=== PATIENT | female | born 1955 | race Caucasian/White ===

== ENCOUNTER 2017-11-23 04:40 | Observation (INO) | payer MEDICARE, OTHER ==
[~2017-11-23] VITALS: Ht 157.5 cm; Wt 76.8 kg
[2017-11-23] VITALS (10 sets, daily range): BP systolic 104–143; BP diastolic 58–76; PULSE 62–89; RESP 16–20; TEMP 97.3–97.9; O2SAT 93–99
[~2017-11-23 04:40] MED LIST: COZA50TA PO; PRAV40TA PO
--- NOTE | 2017-11-23 05:07 | RADRPT ---
EXAM DATE/TIME: 11/23/2017 04:55 [facility] COMPARISON: CT BRAIN W/O CONTRAST, October 21, 2016, 8:25. INDICATIONS : Left sided body tingling. RADIATION DOSE: 58.18 CTDIvol (mGy) MEDICAL HISTORY : Hypertension. Diabetes mellitus type 2. Cerebrovascular disease. SURGICAL HISTORY : None. ENCOUNTER: Initial ACUITY: 1 day PAIN SCALE: 0/10 LOCATION: cranial TECHNIQUE: Multiple contiguous axial images were obtained of the head. Using automated exposure control and adj ustment of the mA and/or kV according to patient size, radiation dose was kept as low as reasonably a chievable to obtain optimal diagnostic quality images. DICOM format image data is available electro nically for review and comparison. FINDINGS: Noncontrast axial head CT demonstrates the ventricles to be normal in size and configuration with a n ormal sulcal pattern. No acute intracranial hemorrhage, acute cortical infarction, mass or midline sh ift is seen. Old right frontotemporal lobe infarct is present. Posterior fossa structures are unremar kable. Bone windows are unremarkable. CONCLUSION: 1. No evidence of acute intracranial pathology. No masses are identified. 2. Old right frontotemporal infarct Forrest Solis MD on November 23, 2017 at 5:05 Board Certified Radiologist. This report was verified electronically.
[2017-11-23 05:15] LABS: AUTOMATED NEUTROPHIL # 2.8 TH/MM3 (1.8-7.7); BASOPHIL % 0.4 % (0.0-2.0); EOSINOPHIL # 0.4 TH/MM3 (0-0.4); EOSINOPHIL % 5.4 % (0.0-4.0); HEMATOCRIT 39.9 % (35.0-46.0); HEMOGLOBIN 13.3 GM/DL (11.6-15.3); LYMPH % 44.3 % (9.0-44.0); LYMPHOCYTE # 3.1 TH/MM3 (1.0-4.8); MEAN CELL VOLUME 86.3 FL (80.0-100.0); MEAN CORPUSCULAR HEMOGLOBIN 28.7 PG (27.0-34.0); MEAN CORPUSCULAR HGB CONC 33.3 % (32.0-36.0); MEAN PLATELET VOLUME 6.6 FL (7.0-11.0); MONO % 9.6 % (0.0-8.0); MONOCYTE # 0.7 TH/MM3 (0-0.9); NEUT % 40.3 % (16.0-70.0); PLATELET COUNT 333 TH/MM3 (150-450); RED BLOOD COUNT 4.62 MIL/MM3 (4.00-5.30); RED CELL DISTRIBUTION WIDTH 12.7 % (11.6-17.2)
--- NOTE | 2017-11-23 05:19 | PD ---
HPI Chief Complaint: Numbness/Tingling Time Seen by Provider: 04:54 Travel History International Travel<30 days: No Contact w/Intl Traveler<30days: No Traveled to known affect area: No History of Present Illness HPI pt awoke and felt as if she were drooling from left corner of her mouth, she went to bathroom and came back , then she felt her hand was shaking strangely . Pt had a stroke right sided with left arm and facial deficits 10/2016 and an MRI from 10/28 showed an intracranial hemorrhagic CVA . Tonight in ER has mild left sided strange feeling and "just doesn't feel right ". The feeling of not feeling right continues in the ER however the facial drooling his sensation is gone and her arm is no longer having trembling that she reported. Family member bedside says there is no new presentation that she has noticed. All her symptoms are left-sided mostly the hand and the face she did not take anything for this she did not take any aspirin she did not take any other medication comes to the ER via EMS PFSH Past Medical History Hx Anticoagulant Therapy: Yes High Cholesterol: Yes COPD: Yes Diabetes: Yes Diminished Hearing: No Endocrine: Yes Hypertension: Yes Musculoskeletal: Yes (CHRONIC PAIN LEFT HAND AND BACK) Respiratory: Yes Menopausal: Yes Past Surgical History Other Surgery: Yes (back surgery) Social History Alcohol Use: Yes (daily) Tobacco Use: No (Quit smoking yesterday ) Substance Use: No Allergies-Medications (Allergen,Severity, Reaction): Coded Allergies: morphine (Unverified Allergy, Intermediate, ITCHING, 06/27/17) IRCHING Reported Meds & Prescriptions Reported Meds & Active Scripts Active Atorvastatin (Atorvastatin Calcium) 40 Mg Tab 40 Mg PO HS Aspirin EC (Aspirin) 81 Mg Tabdr 81 Mg PO DAILY Reported Neurontin (Gabapentin) 300 Mg Cap 300 Mg PO TID Hydrocodone-Acetaminophen 7.5 Mg-325 Mg Tab 1 Tab PO Q6H PRN Losartan-Hctz 100-25 mg Tab (Losartan/Hydrochlorothiazide) 100 Mg-25 Mg Tablet 100 Mg PO DAILY Review of Systems Except as stated in HPI: all other systems reviewed are Neg Physical Exam Narrative GENERAL: slight facial weakness to left lower lip minimal SKIN: Warm and dry. HEAD: Atraumatic. Normocephalic. EYES: Pupils equal and round. No scleral icterus. No injection or drainage. ENT: No nasal bleeding or discharge. Mucous membranes pink and moist. NECK: Trachea midline. No JVD. CARDIOVASCULAR: Regular rate and rhythm. RESPIRATORY: No accessory muscle use. Clear to auscultation. Breath sounds equal bilaterally. GASTROINTESTINAL: Abdomen soft, non-tender, nondistended. Hepatic and splenic margins not palpable. MUSCULOSKELETAL: Extremities Left arm weakness and slight lack of fine motor skills dysmorphic left thumb, .. Left heel to nieto is normal (pt and family report this exam is unchanged) from before tonight NEUROLOGICAL: Awake and alert. No obvious cranial nerve deficits. . Normal speech. PSYCHIATRIC: Appropriate mood and affect; insight and judgment normal. Data Data Last Documented VS Vital Signs Date Time Temp Pulse Resp B/P (MAP) Pulse Ox O2 Delivery O2 Flow Rate FiO2 11/23/17 05:30 20 97 Room Air 11/23/17 05:30 84 140/72 (94) 11/23/17 05:[address] Brain W/O Iv Contrast(Rout) (11/23/17 ) Complete Blood Count With Diff (11/23/17 04:59) Comprehensive Metabolic Panel (11/23/17 04:59) Troponin I (11/23/17 04:59) Urinalysis - C+S If Indicated (11/23/17 04:59) Ecg Monitoring (11/23/17 04:59) Iv Access Insert/Monitor (11/23/17 04:59) Oximetry (11/23/17 04:59) Aspirin Chew (Aspirin Chew) (11/23/17 05:30) Admit Order (Ed Use Only) (11/23/17 06:04) Place In Observation (11/23/17 ) Vital Signs (Adult) Q2HX12,Q4H (11/23/17 06:02) Nih Stroke Scale - Nihss .Daily (11/23/17 06:02) Neuro Checks Q2HX12,Q4H (11/23/17 06:02) Notify Dr: Other (11/23/17 06:02) Remove Urinary Catheter .ONCE (11/23/17 06:02) Pt Request For Service (11/23/17 06:02) Case Management Consult (11/23/17 ) Activity Oob Ad Bella (11/23/17 06:02) Nursing Bedside Swallow Assess .ONCE (11/23/17 06:02) Scd Bilateral/Knee High [email or web address].[email or web address] (11/23/17 06:02) Diet Npo (11/23/17 Breakfast) Hemoglobin (Hgb) A1c (11/23/17 06:02) Echo 2d Comp With Doppler (11/23/17 ) ^ Hold Medication (11/23/17 06:02) Consult Neurology (11/23/17 ) Sodium Chloride 0.9% Flush (Ns Flush) (11/23/17 09:00) Sodium Chloride 0.9% Flush (Ns Flush) (11/23/17 06:15) Bedside Glucose SANJAY.CSUGAR (11/23/17 06:02) Dextrose 50% In Pro (Vial) Inj (D50w (Vi (11/23/17 06:15) Glucagon Inj (Glucagon Inj) (11/23/17 06:15) Insurance Processing Clerk / Telemetry [email or web address] (11/23/17 06:02) Consult Stroke Navigator (11/23/17 ) Labs Laboratory Tests Test 11/23/17 05:00 11/23/17 06:05 White Blood Count 7.0 TH/MM3 Red Blood Count 4.62 MIL/MM3 Hemoglobin 13.3 GM/DL Hematocrit 39.9 % Mean Corpuscular Volume 86.3 FL Mean Corpuscular Hemoglobin 28.7 PG Mean Corpuscular Hemoglobin Concent 33.3 % Red Cell Distribution Width 12.7 % Platelet Count 333 TH/MM3 Mean Platelet Volume 6.6 FL Neutrophils (%) (Auto) 40.3 % Lymphocytes (%) (Auto) 44.3 % Monocytes (%) (Auto) 9.6 % Eosinophils (%) (Auto) 5.4 % Basophils (%) (Auto) 0.4 % Neutrophils # (Auto) 2.8 TH/MM3 Lymphocytes # (Auto) 3.1 TH/MM3 Monocytes # (Auto) 0.7 TH/MM3 Eosinophils # (Auto) 0.4 TH/MM3 Basophils # (Auto) 0.0 TH/MM3 CBC Comment DIFF FINAL Differential Comment Blood Urea Nitrogen 15 MG/DL Creatinine 0.79 MG/DL Random Glucose 94 MG/DL Total Protein 7.8 GM/DL Albumin 4.0 GM/DL Calcium Level 9.1 MG/DL Alkaline Phosphatase 80 U/L Aspartate Amino Transf (AST/SGOT) 10 U/L Alanine Aminotransferase (ALT/SGPT) 22 U/L Total Bilirubin 0.7 MG/DL Sodium Level 132 MEQ/L Potassium Level 3.3 MEQ/L Chloride Level 94 MEQ/L Carbon Dioxide Level 29.9 MEQ/L Anion Gap 8 MEQ/L Estimat Glomerular Filtration Rate 73 ML/MIN Hemoglobin A1c 5.3 % Troponin I LESS THAN 0.02 NG/ML Triglycerides Level 129 MG/DL Cholesterol Level 213 MG/DL LDL Cholesterol 114 MG/DL HDL Cholesterol 73.6 MG/DL Cholesterol/HDL Ratio 2.89 RATIO Urine Color YELLOW Urine Turbidity CLEAR Urine pH 6.0 Urine Specific [place] 1.011 Urine Protein NEG mg/dL Urine Glucose (UA) NEG mg/dL Urine Ketones NEG mg/dL Urine Occult Blood MOD Urine Nitrite NEG Urine Bilirubin NEG Urine Leukocyte Esterase NEG Urine RBC 4-9 /hpf Urine WBC 0-2 /hpf Urine Squamous Epithelial Cells 0-5 /hpf Urine Bacteria NONE /hpf Microscopic Urinalysis Comment CULT NOT INDICATED Urine Opiates Screen NEG Urine Barbiturates Screen NEG Urine Amphetamines Screen NEG Urine Benzodiazepines Screen NEG Urine Cocaine Screen NEG Urine Cannabinoids Screen NEG MDM Medical Decision Making Medical Screen Exam Complete: Yes Emergency Medical Condition: Yes Differential Diagnosis tia vs CVA vs UTI vs Viral illness, Narrative Course CT of head is normal, only old right frontal infarct seen--> nothing acute. Patient's symptoms have resolved . She no longer has the facial tingling and her family member (bedside) says that there is no new physical findings. Patient is given 4 baby aspirin she has no motor deficit and no risk of swallow difficulty patient will be admitted for TIA MedSurg and she will have a follow- up ultrasound of her carotids and an echo possibly will need a neurology consult Diagnosis Primary Impression: TIA (transient ischemic attack) Qualified Codes: G45.9 - Transient cerebral ischemic attack, unspecified Admitting Information Admitting Physician Requests: Observation Scripts Atorvastatin (Atorvastatin) 40 Mg Tab 40 MG PO HS for Cholesterol Management, #30 TAB 0 Refills Prov: Edgar Carrasco MD 11/23/[address] (Aspirin EC) 81 Mg Tabdr 81 MG PO DAILY for Stroke Prevention, #30 TAB 0 Refills Prov: Edgar Carrasco MD 11/23/17 Deondre Leon MD Nov 23, 2017 05:19
[2017-11-23 05:22] LABS: CHLORIDE 94 MEQ/L (98-107); SODIUM (NA) 132 MEQ/L (136-145)
[2017-11-23 05:26] LABS: BICARBONATE 29.9 MEQ/L (21.0-32.0); BLOOD UREA NITROGEN 15 MG/DL (7-18); CALCIUM 9.1 MG/DL (8.5-10.1); GLUCOSE,RANDOM 94 MG/DL (74-106)
[2017-11-23 05:29] LABS: ALT (GPT) 22 U/L (10-53); AST (GOT) 10 U/L (15-37); CREATININE 0.79 MG/DL (0.50-1.00); GLOMERULAR FILTRATION RATE 73 ML/MIN (>89)
[2017-11-23] MEDS ORDERED: ASPIRIN 81 MG CHEW TAB CHEW ONE (05:30)
[2017-11-23 05:31] LABS: TOTAL BILIRUBIN ADULT 0.7 MG/DL (0.2-1.0); TOTAL PROTEIN 7.8 GM/DL (6.4-8.2)
[2017-11-23 05:32] LABS: ALKALINE PHOSPHATASE 80 U/L (45-117)
[2017-11-23 05:34] LABS: TROPONIN I LESS THAN 0.02 NG/ML (0.02-0.05)
[2017-11-23] MEDS ORDERED: NEUR300C PO (05:46)
[2017-11-23] MEDS ORDERED: LOVA10TA PO (05:46)
[2017-11-23] MEDS ORDERED: ASPI325T33 PO (05:46)
[2017-11-23] MEDS ORDERED: HYDR-3580 PO (05:46)
[2017-11-23] MEDS ORDERED: LOSA100T7 PO (05:46)
[2017-11-23 06:15] LABS: BILIRUBIN, URINE NEG (NEG); BLOOD, URINE MOD (NEG); GLUCOSE,URINE NEG (NEG); KETONE, URINE NEG (NEG); NITRITE,URINE NEG (NEG); URINE LEUKOCYTE ESTERASE NEG (NEG)
[2017-11-23] MEDS ORDERED: DEXTROSE 50% IN WATER 50 ML VIAL(D50) IV PUSH PRN (06:15)
[2017-11-23] MEDS ORDERED: POTASSIUM CHLORIDE 20 MEQ CONTROLLED RELEASE TAB PO ONE (06:15)
[2017-11-23] MEDS ORDERED: ENOXAPARIN SODIUM 40 MG/0.4 ML SYRINGE SQ SCH ×2 (06:15→09:00)
[2017-11-23] MEDS ORDERED: SODIUM CHLORIDE 0.9% FLUSH 10 ML FLUSH IV FLUSH PRN (06:15)
[2017-11-23] MEDS ORDERED: GLUCAGON 1 MG/ML VIAL OTHER PRN (06:15)
[2017-11-23 06:21] LABS: URINE COLOR YELLOW (YELLW/STRAW)
[2017-11-23 06:22] LABS: SQUAMOUS EPITHELIAL CELL URINE 0-5 /hpf (0-5); WBC, URINE 0-2 /hpf (0-5)
[2017-11-23] MEDS ORDERED: SODIUM CHLORIDE 0.9% FLUSH 10 ML FLUSH IV FLUSH SCH (09:00)
--- NOTE | 2017-11-23 09:23 | HHI.HP ---
[facility] Service [place] [facility] Primary Care Physician Michelle Gabriel MD Admission Diagnosis TIA Diagnoses: Chief Complaint: Something didn't feel right Travel History International Travel<30 Days: No Contact w/Intl Traveler <30 Da: No Traveled to Known Affected Are: No History of Present Illness 62-year-old white female being admitted for possible TIA versus near syncope. Patient was in her usual state of health until earlier this morning when she got up and within a minute or so she began feeling weak with shaking in her left arm (which she has a history of weakness from her previous hemorrhagic stroke) and unusual feeling in her mouth which she is unable to describe. She denies feeling any numbness tingling or any focal deficits. She says that this shaking in her left arm self resolved and a family member at the bedside did witness this and says that self resolved within minutes. Immediately after experiencing this episode they decided to come to the emergency department. Patient states she felt a little weak ambulating to the car but denies having any specific weakness in any one lower extremity. Patient denies using any assistive devices for ambulation at home. Patient states she takes at 325 mg aspirin every day. Denies any nausea vomiting or any acute vision changes. Patient denies having any history of seizures. About a year ago patient had a hemorrhagic stroke and underwent rehabilitation for residual left arm and hand weakness. After being discharged a couple of months later she began having some increased pain and weakness in the left arm and has started undergoing outpatient physical therapy for this. She reports having chronic pain in her left arm and shoulder. Review of Systems Except as stated in HPI: all other systems reviewed are Neg Past Family Social History Past Medical History Hemorrhagic stroke Hypertension Hypercholesterolemia Left arm pain Past Surgical History Left hand reconstruction secondary to trauma Allergies: Coded Allergies: morphine (Unverified Allergy, Intermediate, ITCHING, 06/27/17) IRCHING Family History No family history of any seizures or neurological diseases such as multiple sclerosis Social History Reports being an on and off smoker for decades up until about a year ago when she had her hemorrhagic stroke Physical Exam Vital Signs Vital Signs Date Time Temp Pulse Resp B/P (MAP) Pulse Ox O2 Delivery O2 Flow Rate FiO2 1/11/18 08:10 104/66 (79) 11/23/17 07:20 68 16 97 Room Air 11/23/17 07:06 62 16 110/73 (85) 96 Room Air 11/23/17 05:30 20 97 Room Air 11/23/17 05:30 84 20 140/72 (94) 99 11/23/17 05:11 82 20 143/76 (98) 97 Room Air 11/23/17 05:05 97.9 84 20 140/72 (94) 99 Physical Exam VS: afebrile GENERAL: Middle-aged white female, seen lying in bed, awake, alert, no acute distress SKIN: Warm and dry. EYES: Pupils equal and round. No scleral icterus. No injection or drainage. ENT: No nasal bleeding or discharge. Mucous membranes pink and moist. CARDIOVASCULAR: Regular rate and rhythm. no murmurs RESPIRATORY: No accessory muscle use. Clear to auscultation. Breath sounds equal bilaterally. GASTROINTESTINAL: Abdomen soft, non-tender, nondistended. Extremities: No clubbing, cyanosis, or edema. No obvious deformities. MUSCULOSKELETAL: grossly intact ROM with 5/5 strength in upper and lower extremities proximally; adequate muscle bulk and tone for age and habitus NEUROLOGICAL: Awake and alert. No obvious cranial nerve deficits. No facial droop nor slurred speech noted. Intact patellar reflexes bilaterally at +2. Has grossly intact sensation to finger touch over lower extremities and upper exts. Has intact strength at plantarflexion and dorsiflexion in both feet. Extraocular motions intact. PSYCHIATRIC: Appropriate mood and affect; insight and judgment normal. Laboratory Laboratory Tests Test 11/23/17 05:00 11/23/17 06:05 White Blood Count 7.0 Red Blood Count 4.62 Hemoglobin 13.3 Hematocrit 39.9 Mean Corpuscular Volume 86.3 Mean Corpuscular Hemoglobin 28.7 Mean Corpuscular Hemoglobin Concent 33.3 Red Cell Distribution Width 12.7 Platelet Count 333 Mean Platelet Volume 6.6 Neutrophils (%) (Auto) 40.3 Lymphocytes (%) (Auto) 44.3 Monocytes (%) (Auto) 9.6 Eosinophils (%) (Auto) 5.4 Basophils (%) (Auto) 0.4 Neutrophils # (Auto) 2.8 Lymphocytes # (Auto) 3.1 Monocytes # (Auto) 0.7 Eosinophils # (Auto) 0.4 Basophils # (Auto) 0.0 CBC Comment DIFF FINAL Differential Comment Blood Urea Nitrogen 15 Creatinine 0.79 Random Glucose 94 Total Protein 7.8 Albumin 4.0 Calcium Level 9.1 Alkaline Phosphatase 80 Aspartate Amino Transf (AST/SGOT) 10 Alanine Aminotransferase (ALT/SGPT) 22 Total Bilirubin 0.7 Sodium Level 132 Potassium Level 3.3 Chloride Level 94 Carbon Dioxide Level 29.9 Anion Gap 8 Estimat Glomerular Filtration Rate 73 Troponin I LESS THAN 0.02 Urine Color YELLOW Urine Turbidity CLEAR Urine pH 6.0 Urine Specific [place] 1.011 Urine Protein NEG Urine Glucose (UA) NEG Urine Ketones NEG Urine Occult Blood MOD Urine Nitrite NEG Urine Bilirubin NEG Urine Leukocyte Esterase NEG Urine RBC 4-9 Urine WBC 0-2 Urine Squamous Epithelial Cells 0-5 Urine Bacteria NONE Microscopic Urinalysis Comment CULT NOT INDICATED Result Diagram: 11/23/17 0500 11/23/17 0500 Caprini VTE Risk Assessment Caprini VTE Risk Assessment: Mod/High Risk (score >= 2) Caprini Risk Assessment Model Point Value = 1 Point Value = 2 Point Value = 3 Point Value = 5 Age 41-60 Minor surgery BMI > 25 kg/m2 Swollen legs Varicose veins or History of unexplained or recurrent spontaneous Oral contraceptives or hormone replacement Sepsis (< 1 month) Serious lung disease, including pneumonia (< 1 month) Abnormal pulmonary function Acute myocardial infarction Congestive heart failure (< 1 month) History of inflammatory bowel disease Medical patient at bed rest Age 61-74 Arthroscopic surgery Major open surgery (> 45 min) Laparoscopic surgery (> 45 min) Malignancy Confined to bed (> 72 hours) Immobilizing plaster cast Central venous access Age >= 75 History of VTE Family history of VTE Factor V Leiden Prothrombin [id number] Lupus anticoagulant Anticardiolipin antibodies Elevated serum homocysteine Heparin-induced thrombocytopenia Other congenital or acquired thrombophilia Stroke (< 1 month) Elective arthroplasty Hip, pelvis, or leg fracture Acute spinal cord injury (< 1 month) Prophylaxis Regimen Total Risk Factor Score Risk Level Prophylaxis Regimen 0-1 Low Early ambulation 2 Moderate Order ONE of the following: *Sequential Compression Device (SCD) *Heparin 5000 units SQ BID 3-4 Higher Order ONE of the following medications: *Heparin 5000 units SQ TID *Enoxaparin/Lovenox 40 mg SQ daily (WT < 150 kg, CrCl > 30 mL/min) *Enoxaparin/Lovenox 30 mg SQ daily (WT < 150 kg, CrCl > 10-29 mL/min) *Enoxaparin/Lovenox 30 mg SQ BID (WT < 150 kg, CrCl > 30 mL/min) AND/OR *Sequential Compression Device (SCD) 5 or more Highest Order ONE of the following medications: *Heparin 5000 units SQ TID (Preferred with Epidurals) *Enoxaparin/Lovenox 40 mg SQ daily (WT < 150 kg, CrCl > 30 mL/min) *Enoxaparin/Lovenox 30 mg SQ daily (WT < 150 kg, CrCl > 10-29 mL/min) *Enoxaparin/Lovenox 30 mg SQ BID (WT < 150 kg, CrCl > 30 mL/min) AND *Sequential Compression Device (SCD) Assessment and Plan Assessment and Plan 62 white female being under for possible TIA Patient's presentation may be reflective of TIA but I am more impressed by the notion that this could very well just simply be transient orthostatic hypotension that resulted in some diffuse unsteadiness as the patient does report drinking very little water on a daily basis (less than 8 glasses daily). We will continue aspirin 325 for now as well as permissive hypertension. I will give her IV fluids and obtain orthostatic vital signs. I will have our rehabilitation services evaluate her. Neurology was consulted. MRI and echocardiogram have been ordered. If neurology sees patient for these images are done in sees no need for this, we will cancel these tests. sCDs Addendum: Patient had MRI as well as MRA: No concerning acute findings were noted. Patient had normal orthostatic vital signs. She tolerated well with PT. Electroencephalogram has been performed and patient can follows this up as an outpatient. She was counseled on avoiding driving, operating heavy machinery , swimming, or bathing alone per neurology recommendations. Patient is stable for discharge from neurology standpoint given that the magnetic resonance imaging tests are unremarkable. I instructed the patient that she can downgrade down to 81 mg of aspirin and that we will instead start her on atorvastatin in lieu of her home lovastatin. Patient has met maximal benefit from hospitalization and is clinically stable for discharge. Edgar Carrasco MD Nov 23, 2017 09:23
[2017-11-23] MEDS ORDERED: SODIUM CHLOR 0.9% 1000 ML INJ 1,000 ML IV ONE (09:30)
[2017-11-23] MEDS ORDERED: SODIUM CHLORID 0.9% 500 ML INJ 500 ML IV ONE (09:30)
[2017-11-23 10:48] LABS: HEMOGLOBIN A1C 5.3 % (4.3-6.0)
--- NOTE | 2017-11-23 11:13 | MB ---
cc: RODNEY DELEON M.D.,TALHA Arango MD DATE OF CONSULTATION: 11/23/2017 HISTORY OF PRESENT ILLNESS A 62-year-old right-handed woman with a history of hypertension, hypercholesterolemia, who had a large right MCA infarct, cortically based with some small hemorrhagic component in October 2016. MRA of the carotids and [id number] were normal. She has been on a baby aspirin since. She had a Holter monitor done at that time, showed some brief runs of nonsustained atrial tachycardia. She had an echocardiogram which was normal, left atrial size was normal, ejection fraction normal. She had been doing well and has been driving again. She was admitted yesterday, about 04:00 a.m. she evidently went to the bathroom, felt something weird on the left side of her mouth and then the left arm, began to jerk less than 15 seconds. She was able to talk through that and then felt fine. MEDICATIONS AT HOME 1. Aspirin, have it written down here as 325 aspirin. 2. Gabapentin. 3. Lovastatin. 4. Hydrocodone. 5. Losartan. 6. Acetaminophen. ALLERGIES MORPHINE. REVIEW OF SYSTEMS She denies any diabetes, ND, stent, angioplasty, atrial fibrillation, Coumadin, CABG, renal, hepatic or pulmonary disease, thyroid disease, lupus, ulcer, cancer, prior seizure. No odd smells, tastes or mayi vu, not woken up wet the bed or bit her tongue. SOCIAL HISTORY She is not a smoker, has about six beers a day. Lives with her partner. FAMILY HISTORY Positive for cancer. Negative for seizure or stroke. PHYSICAL EXAMINATION VITAL SIGNS: 143/76, afebrile, 83, 20. She has been in sinus rhythm here. NECK: There are no carotid bruits. HEART: Regular rhythm. I do not detect a murmur. NEURO: Pupils are equal. Visual mann are full. Extraocular movements intact without nystagmus. Just a hint of droopiness on the left side of her face, she moves it fairly symmetrically. Tongue was midline. There is a slight left drift. She had normal strength of right upper and bilateral lower extremity. Left upper extremity is near normal strength with 5-/5 in the left triceps finger extensors. A little clumsy on fast finger movements on the left side. DTRs she is slightly hyperreflexic on the left compared to the right. Toes are downgoing bilaterally. Pinprick was intact throughout including left hand. She is not ataxic on [id number]. She has old injury to the left thumb. LABORATORY DATA CBC is normal. Sed rate was normal back in October. Basic metabolic profile, sodium here was 132. She has a history of some lower sodium down to 135 in October of 2016. LFTs are normal. Troponin is negative. Albumin is normal. B12 was normal in 2015. Folate was normal back then as was the TSH. MRA [id number] was limited but negative at that time. Carotid ultrasound at that time was minimal plaquing and otherwise negative. IMPRESSION She had a large right MCA infarct back in October 2016. I would recommend her getting a loop recorder as an outpatient. I did talk to her and her partner about this. She could have occult atrial fibrillation and that needs to be worked up. I want to check an MRA of her neck and MRI of the brain here today and EEG. I think more than likely today's episode indicates probably a small focal seizure and I recommend she start on 500 mg twice a day of Keppra and also she can continue on her aspirin. I have asked her not to drive, swim alone, take a bath alone or any other high-risk activities until further notice and she can follow up with Dr. Mccormick as an outpatient. She has agreed not to drive until further notice. Will check a hypercoag screen on her also. So if EEG is performed and the MRI does not show any acute new stroke, then she could be discharged later to follow up with Dr. Mccormick next week. Would also check a UA and urine drug screen on her here. MD MADDI Hodge/[place] /10:12 AM /10:37 AM
[2017-11-23] MEDS ORDERED: GADODIAMIDE PF 287 MG/ML 20 ML VIAL (for RAD MRI) IVCONTRAST ONE (11:52)
[2017-11-23 12:18] LABS: CHOLESTEROL/ HDL RATIO 2.89 RATIO; HDL CHOLESTEROL 73.6 MG/DL (40.0-60.0)
[2017-11-23] MEDS: GABAPENTIN 300 MG CAP PO SCH ×2 (12:39→17:13)
[2017-11-23] MEDS ORDERED: ACETAMINOPHEN/HYDROcodone 325 MG/7.5 MG TAB PO PRN (12:45)
--- NOTE | 2017-11-23 13:36 | RADRPT ---
EXAM DATE/TIME: 11/23/2017 11:36 [facility] COMPARISON: MRI BRAIN W/O CONTRAST, October 18, 2016, 14:23. CT BRAIN W/O CONTRAST, November 23, 2017, 4:55. INDICATIONS : CVA. Left sided weakness. CONTRAST: 20 cc Omniscan (gadodiamide) IV MEDICAL HISTORY : Hypertension. SURGICAL HISTORY : Hand reconstruction and lower back. ENCOUNTER: Initial ACUITY: 1 day PAIN SCORE: 0/10 LOCATION: Head. TECHNIQUE: Multiplanar, multisequence MRI of the brain was performed both prior to and following the administrat ion of paramagnetic contrast. FINDINGS: CEREBRUM: There is mild atrophic change with sulcal prominence. There is a focal area of encephalomalacia again noted involving the right posterior frontal and parietal lobes at site of prior infarction. No evide nce of midline shift, mass lesion, hemorrhage or acute infarction. No extraaxial fluid collections a re seen. The pituitary gland and suprasellar cistern are normal in configuration. WHITE MATTER: On the flair weighted images there are is increased signal noted in the periventricular white matter with scattered punctate areas of increased signal noted in the white matter bilaterally. POSTERIOR FOSSA: The cerebellum and brainstem are intact. The 4th ventricle is midline. The cerebellopontine angle is unremarkable. The cerebellar tonsils are normal in position. DIFFUSION IMAGING: No focal areas of restricted diffusion are seen. No evidence of acute infarction. EXTRACRANIAL: The visualized portions of the orbits and paranasal sinuses are unremarkable. POST-CONTRAST: No abnormal areas of parenchymal or dural enhancement. No evidence of blood-brain barrier breakdown. CONCLUSION: 1. No acute hemorrhage, mass or infarction. 2. Old right frontal parietal infarction with gliosis. 3. Atrophy and chronic small vessel ischemic change. Tao Arreola MD on November 23, 2017 at 13:29 Board Certified Radiologist. This report was verified electronically.
--- NOTE | 2017-11-23 16:06 | RADRPT ---
EXAM DATE/TIME: 11/23/2017 11:36 [place] COMPARISON: No previous studies available for comparison. INDICATIONS : Stroke. Left sided weakness. CONTRAST: 20 cc Omniscan (gadodiamide) IV MEDICAL HISTORY : Hypertension. SURGICAL HISTORY : Lower back and hand reconstruction. ENCOUNTER: Initial ACUITY: 1 day PAIN SCORE: 0/10 LOCATION: Head. Percent stenosis is calculated using the diameter of the stenotic region over the diameter of the nor mal distal internal carotid artery. TECHNIQUE: Bolus infused MRA of the extracranial circulation was performed using a neurovascular coil. Post pro cessing was performed including rotating subvolume maximum intensity projections of each carotid dann ry, rotating full volume maximum intensity projections of both carotid arteries, sagittal and coronal sliding thin slab reformations of each carotid artery, and left oblique sliding thin slab reformatio n through the aortic arch to include the origin of the arch branch vessels. FINDINGS: AORTIC ARCH: There is a three vessel origin of the great vessels from the aorta. No evidence of ostial narrowing. RIGHT CAROTID: The common carotid artery is intact. The carotid bulb has a normal configuration without ulceration or narrowing. The internal carotid artery lumen is smooth without stenosis. The external carotid ar lui is intact. LEFT CAROTID: The common carotid artery is intact. The carotid bulb has a normal configuration without ulceration or narrowing. The internal carotid artery lumen is smooth without stenosis. The external carotid ar lui is intact. VERTEBRALS: The vertebral arteries have a symmetric diameter. No stenotic lesions are seen. CONCLUSION: Negative exam. Cervical and arch vessels are all patent. Zeus Dukes MD on November 23, 2017 at 15:58 Board Certified Radiologist. This report was verified electronically.
[2017-11-23] MEDS ORDERED: ATOR40TA16 PO (17:30)
[2017-11-23] MEDS ORDERED: ASPI81TA23 PO (17:30)
--- NOTE | 2017-11-23 17:43 | HHI.DCPOC ---
Discharge Care Plan Diagnosis: (1) Lightheadedness (2) Hypertension Goals to Promote Your Health * To prevent worsening of your condition and complications * To maintain your health at the optimal level Directions to Meet Your Goals Take your medications as prescribed Follow your dietary instruction Follow activity as directed Keep your appointments as scheduled Take your immunizations and boosters as scheduled If your symptoms worsen call your PCP, if no PCP go to Urgent Care Center or Emergency Room Smoking is Dangerous to Your Health. Avoid second hand smoke Call the 24-hour hour crisis hotline for domestic abuse at Edgar Carrasco MD Nov 23, 2017 17:43
--- NOTE | 2017-11-23 20:13 | MG ---
cc: SHAHBAZ BARTON MD Lab No: Date: 11/23/17 Age: Sex: F Race: DATE OF [address] Desir MEDICAL HISTORY Stroke, numbness, dizziness, Hypercholesteremia, hypertension, asthma,emphysema , anxiety, anticoagulation therapy, diabetes mellitus admitted for drooling from the left corner of the mouth, shaking, not feeling right, facial droop. MEDICATIONS 1. Gabapentin 2. Lovenox 3. Aspirin. DESCRIPTION The background activity is 8-9 Hz alpha located posteriorly bilateral and symmetrical. Posterior to anterior gradient of the alpha activity is noted. There is excessive muscle movements and eye blink artifact. Hyperventilation was omitted. Photic stimulation did not elicit a driving response. There were no electrographic seizures or epileptiform discharges noted during the recording. INTERPRETATION This is a normal awake EEG. There is excessive movement, muscle and eye blink artifact during the recording. There were no electrographic seizures or epileptiform discharges noted during the recording. MD NARCISA Lai/ /6:59 PM /7:54 PM [facility]
[2017-11-23] MEDS ORDERED: ATORVASTATIN 40 MG TAB PO SCH (21:00)
[2017-11-23] MEDS ORDERED: levETIRAcetam 500 MG TAB PO SCH (21:00)
[2017-11-24] MEDS ORDERED: PRAVASTATIN SOD 10 MG TAB PO SCH (09:00)
[2017-11-24 15:16] LABS: CARDIOLIPIN IGG AB <9.4 GPL; CARDIOLIPIN IGM AB <9.4 MPL
[2017-11-24 15:41] LABS: ANA SCREEN NEG (NEG)
[2017-11-27 03:52] LABS: DRVVT 1:1 MIX ND (CORRECTED); DRVVT CONFIRM ND (NEGATIVE); HEXAGONAL PHASE CONFIRM ND (NEGATIVE)
--- NOTE | 2017-11-27 15:11 | ECHRPT ---
Indication: CVA/TIA CONCLUSIONS The left ventricular systolic function is normal with an estimated ejection fraction in the range of 60-65%. Wall thickness is normal. Normal left ventricular size. No regional wall motion abnormalities are present. Trace aortic valve regurgitation. There is trace tricuspid valve regurgitation. The estimated pulmonary arterial pressure is 27 mmHg. The inferior vena cava was not well visualized. BP: 104 / 66 HR: 79 Rhythm: Sinus MEASUREMENTS (Male / Female) Normal Values Technical Quality:Good 2D ECHO LV Diastolic Diameter PLAX 4.1 cm 4.2 - 5.9 / 3.9 - 5.3 cm LV Systolic Diameter PLAX 2.6 cm IVS Diastolic Thickness 1.0 cm 0.6 - 1.0 / 0.6 - 0.9 cm LVPW Diastolic Thickness 1.1 cm 0.6 - 1.0 / 0.6 - 0.9 cm LV Relative Wall Thickness 0.5 RV Internal Dim ED PLAX 3.0 cm LVOT Diameter 1.8 cm LA Systolic Diameter LX 3.4 cm 3.0 - 4.0 / 2.7 - 3.8 cm M-MODE Aortic Root Diameter MM 2.6 cm AV Cusp Separation MM 1.9 cm DOPPLER AV Peak Velocity 144.0 cm/s AV Peak Gradient 8.3 mmHg LVOT Peak Velocity 120.0 cm/s LVOT Peak Gradient 5.8 mmHg AV Area Cont Eq pk 2.1 cm MV Area PHT 4.5 cm Mitral E Point Velocity 63.2 cm/s Mitral A Point Velocity 84.9 cm/s Mitral E to A Ratio 0.7 LV E' Lateral Velocity 8.7 cm/s Mitral E to LV E' Lateral Ratio 7.3 LV E' Septal Velocity 6.7 cm/s Mitral E to LV E' Septal Ratio 9.4 TR Peak Velocity 206.0 cm/s TR Peak Gradient 17.0 mmHg Right Atrial Pressure 10.0 mmHg Pulmonary Artery Systolic Pressu 27.0 mmHg Right Ventricular Systolic Press 27.0 mmHg PV Peak Velocity 118.0 cm/s PV Peak Gradient 5.6 mmHg FINDINGS LEFT VENTRICLE The left ventricular systolic function is normal with an estimated ejection fraction in the range of 60-65%. Wall thickness is normal. Normal left ventricular size. No regional wall motion abnormalities are present. RIGHT VENTRICLE Normal right ventricular size and systolic function. LEFT ATRIUM The left atrial size is normal. RIGHT ATRIUM The right atrial size is normal. ATRIAL SEPTUM Normal atrial septal thickness without atrial level shunting by limited color doppler interrogation. AORTA The aortic root and proximal ascending aorta are normal in size on limited imaging. MITRAL VALVE Structurally normal mitral valve. No mitral valve stenosis or regurgitation. AORTIC VALVE Trileaflet aortic valve. Trace aortic valve regurgitation. TRICUSPID VALVE Structurally normal tricuspid valve. There is trace tricuspid valve regurgitation. The estimated pulmonary arterial pressure is 27 mmHg. PULMONARY VALVE No pulmonary valve regurgitation or stenosis. VESSELS The inferior vena cava was not well visualized. PERICARDIUM No pericardial effusion. Federico Lucas MD (Electronically Signed) Final Date:27 November 2017 15:10
[2017-11-27 15:52] LABS: FACTOR VIII(8) ACTIVITY 54 (50-180)
[2017-11-27 17:33] LABS: PROTEIN C ACTIVITY 171 % (70 - 150); PROTEIN S ACTIVITY 119 % (65 - 160)
[2017-11-28 03:50] LABS: ANTI-THROMBIN III ACT 113 (80-120)
== END 2017-11-23 18:44 | disposition home or self-care (01) ==
LOC: PHED 04:40 → PHEDA 06:05 → PH3A 08:15
PROVIDERS: ADMIT Hospitalist; ATTEND Hospitalist
DX: R53.1 Weakness (principal); I69.334 Monoplegia of upper limb following cerebral infarction affecting left non-dominant side; E78.00 Pure hypercholesterolemia, unspecified; I10 Essential (primary) hypertension; E11.9 Type 2 diabetes mellitus without complications; R20.2 Paresthesia of skin; J45.909 Unspecified asthma, uncomplicated; J43.9 Emphysema, unspecified; Z79.82 Long term (current) use of aspirin; J44.9 Chronic obstructive pulmonary disease, unspecified; M54.9 Dorsalgia, unspecified; G89.29 Other chronic pain; M79.642 Pain in left hand; Z79.899 Other long term (current) drug therapy
CPT/HCPCS: 70450; 70548; 70553; 80053; 80061; 80307; 81001; 81240; 81241; 82746; 83036; 84425; 84484; 85025; 85240; 85300; 85303; 85306; 85613; 85652; 85730; 86038; 86147; 86592; 93306; 95819; 96360; 96361; 96372; 97162; 97165; 99285; A9579; G0378; G8987; G8988; G8989; J1650; J7030; J7040

== ENCOUNTER 2018-07-25 15:49 | Inpatient (IN) ==
[2018-07-25 16:11] LABS: Baso # (Auto) 0.1 th/mm3 (0.0-0.2); Baso % (Auto) 0.9 % (0.0-2.0); Eos # (Auto) 0.2 th/mm3 (0.0-0.4); Eos % (Auto) 2.8 % (0.0-4.0); Hematocrit 41.1 % (35.0-46.0); Hemoglobin 13.6 gm/dL (11.6-15.3); Lymph # (Auto) 3.5 th/mm3 (1.0-4.8); Lymph % (Auto) 41.4 % (9.0-44.0); Mean Corpuscular HGB Conc 33.1 % (32.0-36.0); Mean Corpuscular Hemoglobin 29.6 pg (27.0-34.0); Mean Corpuscular Volume 89.4 fL (80.0-100.0); Mean Platelet Volume 6.8 fL (7.0-11.0); Mono # (Auto) 0.9 th/mm3 (0.0-0.9); Mono % (Auto) 10.3 % (0.0-8.0); Neut # (Auto) 3.8 th/mm3 (1.8-7.7); Neut % (Auto) 44.6 % (16.0-70.0); Platelet Count 369 th/mm3 (150-450); Red Cell Distribution Width 13.8 % (11.6-17.2); White Blood Count 8.6 th/mm3 (4.0-11.0)
--- NOTE | 2018-07-25 16:21 | CT ---
EXAM DATE: 07/25/2018 4:05 PM EDT AGE/SEX: 63 years / Female INDICATIONS: Left sided weakness CLINICAL DATA: This is the patient's initial encounter. Patient reports that signs and symptoms have been present for 1 day and indicates a pain score of 0/10. MEDICAL/SURGICAL HISTORY: . unable to obtain . unable to obtain RADIATION DOSE: 56.35 CTDI (mGy) COMPARISON: [facility], CT BRAIN W/O CONTRAST, 11/23/2017. . TECHNIQUE: CT of the head without contrast. Using automated exposure control and adjustment of the mA and/or kV according to patient size, radiation dose was kept as low as reasonably achievable to ob tain optimal diagnostic quality images. DICOM format image data is available electronically for revi ew and comparison. FINDINGS: Cerebrum: There is an old area of infarction involving the right MCA territory. This is stable. No a cute infarction observed. The ventricles are normal for age. No evidence of midline shift, mass lesi on, hemorrhage or acute infarction. No extraaxial fluid collections are seen. Posterior Fossa: The cerebellum and brainstem are intact. The 4th ventricle is midline. The cerebe llopontine angle is unremarkable. Extracranial: The visualized portion of the orbits is intact. Skull: The calvaria is intact. No evidence of skull fracture. CONCLUSION: 1. Old right MCA territory infarction. 2. No acute intracranial abnormality. Report was called by [Dr. Delgado to Dr. Hernandez at 1606. ] Electronically signed by: Tone Delgado MD 07/25/2018 4:20 PM EDT
--- NOTE | 2018-07-25 16:25 | CT ---
EXAM DATE: 07/25/2018 4:20 PM EDT AGE/SEX: 63 years / Female INDICATIONS: Stroke alert, left side weakness. CLINICAL DATA: This is the patient's initial encounter. Patient reports that signs and symptoms have been present for 1 day and indicates a pain score of Nonresponsive. MEDICAL/SURGICAL HISTORY: Non-responsive. Non-responsive. RADIATION DOSE: 9.66 CTDI (mGy) ; Combined studies COMPARISON: [facility], CT HEAD W/O CONTRAST, 07/25/2018. . TECHNIQUE: Volumetric scanning was performed using a multi-row detector CT scanner during bolus infu gela of 75 ml Visipaque 320 (iodixanol) nonionic water-soluble contrast as a cumulative dose for mul tiple exams. The data was post processed with a variety of visualization algorithms including full volume maximum intensity projection, multi-planar sliding thin slab reformation, curved planar reform ation, and surface rendering techniques. Using automated exposure control and adjustment of the mA a nd/or kV according to patient size, radiation dose was kept as low as reasonably achievable to obtain optimal diagnostic quality images. DICOM format image data is available electronically for review a nd comparison. FINDINGS: There is excellent visualization of the major intracranial arteries out to the second-order branch ve ssels. There is no evidence for aneurysm, vessel truncation or stenosis, and no evidence for vascula r malformation. CONCLUSION: 1. Negative CTA Head. Electronically signed by: Gino Schneider MD 07/25/2018 4:24 PM EDT
[2018-07-25 16:29] LABS: Activated Partial Thrombo Time 19.8 sec (24.3-30.1); Prothrombin Time 10.5 sec (9.8-11.6)
[2018-07-25 16:36] LABS: Beta HCG,Quantitative 4 mIU/mL (0-5)
--- NOTE | 2018-07-25 16:41 | CT ---
EXAM DATE: 07/25/2018 4:27 PM EDT AGE/SEX: 63 years / Female INDICATIONS: Stroke alert, left side weakness. CLINICAL DATA: This is the patient's initial encounter. Patient reports that signs and symptoms have been present for 1 day and indicates a pain score of 10/10. MEDICAL/SURGICAL HISTORY: Non-responsive. Non-responsive. RADIATION DOSE: 9.66 CTDI (mGy) ; Combined studies COMPARISON: [facility], MRA CAROTIDS W CONTRAST, 11/23/2017. [facility], CT HEAD W/O CONTRAST, 07/25/2018. [facility], MR HEAD W & W/O CONTRAST, 07/25/2018. [facility], CTA HEAD W CONTRAST W 3D, 07/25/2018. . TECHNIQUE: Volumetric scanning was performed using a multirow detector CT scanner during bolus infus ion of 75 ml Visipaque 320 (iodixanol) nonionic water-soluble contrast as a cumulative dose for mult iple exams. The data was postprocessed with a variety of visualization algorithms including full-vo lume maximum intensity projection, multiplanar sliding thin-slab reformation, curved-planar reformati on, and surface-rendering techniques. Using automated exposure control and adjustment of the mA and/ or kV according to patient size, radiation dose was kept as low as reasonably achievable to obtain op timal diagnostic quality images. DICOM format image data is available electronically for review and comparison. Percent stenosis is calculated using the diameter of the stenotic region over the diameter of the nor mal distal internal carotid artery. FINDINGS: Note is made of a circumscribed 1.4 cm hypodense right thyroid nodule. There is linear ate lectasis versus scarring in the right upper lobe. Aortic Arch: There is a three-vessel origin of the great vessels from the aorta. No evidence of ost ial narrowing Right Carotid: The common carotid artery is intact. The carotid bulb has a normal configuration wit hout ulceration or narrowing. The internal carotid artery lumen is smooth without stenosis. The ext ernal carotid artery is intact. Left Carotid: The common carotid artery is intact. The carotid bulb has a normal configuration with out ulceration or narrowing. The internal carotid artery lumen is smooth without stenosis. The exte rnal carotid artery is intact. Vertebrals: The vertebral arteries have a symmetric diameter. No stenotic lesions are seen. CONCLUSION: 1. Carotid and vertebral arteries are widely patent with no evidence for stenosis or occlusion. Electronically signed by: Gino Schneider MD 07/25/2018 4:40 PM EDT
--- NOTE | 2018-07-25 16:49 | ED ---
HPI General Chief Complaint: Stroke Alert Stated Complaint: STROKE ALERT Time Seen by Provider: 07/25/18 15:57 Source: patient, family, EMS and old records reviewed Mode of arrival: EMS Limitations: altered mental status History of Present Illness HPI Narrative: Is a 63-year-old woman presents to the emergency department complaining of flaccid paresis. She reportedly just prior to calling EMS experienced the onset of left-sided shaking, followed by left-sided flaccid paresis. EMS reports patient a complete flaccid paresis of rightward gaze and sensory loss on their arrival. She improved rapidly with EMS. Patient states that symptoms started with shaking. Review of medical records shows that she has had a previous large right MCA infarct previous episodes that were thought to be TIA versus possibly partial seizures. Patient states she otherwise had been well however history leading up to the event is a little bit limited on initial presentation. Related Data Home Medications Medication Instructions Recorded Confirmed bupropion HCl 150 mg PO DAILY 07/25/18 07/25/18 losartan-hydrochlorothiazide 1 tab PO DAILY 07/25/18 07/25/18 lovastatin 20 mg PO DAILY 07/25/18 07/25/18 lovastatin 20 mg PO DAILY 07/25/18 07/25/18 solifenacin [Vesicare] 10 mg PO DAILY 07/25/18 07/25/18 Allergies Allergy/AdvReac Type Severity Reaction Status Date / Time morphine Allergy Intermediate ITCHING Verified 07/25/18 15:53 Review of Systems ROS: all other systems reviewed are negative [facility] Medical History Medical History HTN (hypertension) (Acute) Seizure (Acute) TIA (transient ischemic attack) (Acute) Surgical History Surgical History H/O hand surgery (Acute) Social History Social History Substance History: No History of Abuse Second Hand Smoke Exposure: No Smoking Status: Former smoker How Often Do You Have a Drink Containing Alcohol: 4 or more times a week Recent Travel in [facility] within the Last 8 Weeks: No Immunization History Tetanus Immunization: <5 Years Hx Influenza Vaccine This Season: No Exam Narrative Exam Narrative: GENERAL: 63-year-old woman, weak on the left, nontoxic. SKIN: Focused skin assessment warm/dry. HEAD: Atraumatic. Normocephalic. EYES: Pupils equal and round. No scleral icterus. No injection or drainage. ENT: No nasal bleeding or discharge. Mucous membranes pink and moist. NECK: Trachea midline. No JVD. CARDIOVASCULAR: Regular rate and rhythm. No murmur appreciated. RESPIRATORY: No accessory muscle use. Clear to auscultation. Breath sounds equal bilaterally. GASTROINTESTINAL: Abdomen soft, non-tender, nondistended. Hepatic and splenic margins not palpable. MUSCULOSKELETAL: No obvious deformities. No clubbing. No cyanosis. No edema. NEUROLOGICAL: Awake and alert. No obvious cranial nerve deficits. Motor grossly within normal limits. Normal speech. PSYCHIATRIC: Appropriate mood and affect; insight and judgment normal. Course Initial Documented Vital Signs Pulse Oximetry 97 07/25/18 15:49 Last Documented Vital Signs Temperature 98.7 F 07/25/18 16:12 Pulse Rate 104 H 07/25/18 16:28 Respiratory Rate 17 07/25/18 16:28 Blood Pressure 138/90 07/25/18 16:28 Pulse Oximetry 96 07/25/18 16:28 Critical Care Time Critical Care Time: Yes Total Critical Care Time: 40 Attestation: Aggregate critical care time was 40 minutes. Time to perform other separately billable procedures was not included in the critical care time. My time did not include minutes spent treating any other patients simultaneously or on activities that did not directly contribute to the patient's treatment. The services I provided to this patient were to treat and/or prevent clinically significant deterioration that could result in: Stroke, seizure, respiratory failure, missed opportunity for TPA, permanent disability, . I provided critical care services requiring my management, as noted below: Chart data review, documentation time, medication orders and management, vital sign assessments/reviewing monitor data, ordering and reviewing lab tests, ordering and interpreting/reviewing x-rays and diagnostic studies, care of the patient and discussion of the patient with the admitting physicians. NIH Stroke Scale NIH Stroke Scale Orientation Questions: 0-Answers both correct Responds to Commands: 0-Both tasks correct Gaze Eye Movement: 0-Horizontal movement WNL Visual Ivy: 0-No visual field defect Facial Movement: 0-Normal Motor Functions Arm LEFT: 0-No drift Motor Functions Arm RIGHT: 0-No drift Motor Functions Leg LEFT: 0-No drift Motor Functions Leg RIGHT: 0-No drift Limb Ataxia: 0-No ataxia Sensory Loss: 1-Mild sensory loss Best Language: 0-Normal Articulation: 0-Normal Extinction or Inattention Sensory: 0-Absent Total: 1 Quality Measure Queries Stroke Last date observed well: 07/25/18 Last time observed well: 14:55 Medical Decision Making MDM Narrative Medical Screen Exam Complete: Yes Emergency Medical Condition: Yes Lab Data Lab results reviewed: Yes I reviewed the patient's lab results. Result diagrams: 07/25/18 15:15 Lab Results 07/25/18 07/25/18 07/25/18 Range/Units 15:15 15:15 15:57 WBC 8.6 (4.0-11.0) th/mm3 RBC 4.60 (4.00-5.30) mil/mm3 Hgb 13.6 (11.6-15.3) gm/dL POC Hgb (Calc) 14.3 (11.6-15.3) g/dL Hct 41.1 (35.0-46.0) % POC Hct 42.0 (35-46.0) % MCV 89.4 (80.0-100.0) fL MCH 29.6 (27.0-34.0) pg MCHC 33.1 (32.0-36.0) % RDW 13.8 (11.6-17.2) % Plt Count 369 (150-450) th/mm3 MPV 6.8 L (7.0-11.0) fL Neut % (Auto) 44.6 (16.0-70.0) % Lymph % (Auto) 41.4 (9.0-44.0) % Sutter % (Auto) 10.3 H (0.0-8.0) % Eos % (Auto) 2.8 (0.0-4.0) % Baso % (Auto) 0.9 (0.0-2.0) % Neut # (Auto) 3.8 (1.8-7.7) th/mm3 Lymph # (Auto) 3.5 (1.0-4.8) th/mm3 Sutter # (Auto) 0.9 (0.0-0.9) th/mm3 Eos # (Auto) 0.2 (0.0-0.4) th/mm3 Baso # (Auto) 0.1 (0.0-0.2) th/mm3 WBC Differential . Differential Comment Auto diff final PT 10.5 (9.8-11.6) sec INR 1.0 Ratio APTT 19.8 L (24.3-30.1) sec Fibrinogen 265 (227-377) mg/dL POC Sodium 132 L (137-144) mmol/L POC Potassium 3.2 L (3.6-5.0) mmol/L POC Chloride 91 L (102-111) mmol/L POC BUN 13 (5-21) mg/dL POC Creatinine 0.9 (0.6-1.3) mg/dL POC Glucose 138 H (68-110) mg/dL Imaging Data Radiologist's impression: Head CT 07/25/18 15:57 CONCLUSION: 1. Old right MCA territory infarction. 2. No acute intracranial abnormality. Report was called by [Dr. Delgado to Dr. Hernandez at 1606. ] Head CTA 07/25/18 15:57 CONCLUSION: 1. Negative CTA Head. Neck CTA 07/25/18 15:57 CONCLUSION: 1. Carotid and vertebral arteries are widely patent with no evidence for stenosis or occlusion. Discharge Plan Discharge Disposition Patient Disposition: 30 Still Patient Physicians Team ED Provider: Guy Hernandez Other Providers: Forrest Draper Rxs /Orders / Referrals /Forms Prescriptions: No Action bupropion HCl 150 mg Tablet Extended Release 12 Hr 150 mg PO DAILY RF: 0 losartan-hydrochlorothiazide 100-25 mg Tablet 1 tab PO DAILY RF: 0 lovastatin 20 mg Tablet 20 mg PO DAILY RF: 0 lovastatin 20 mg Tablet 20 mg PO DAILY RF: 0 solifenacin [Vesicare] 10 mg Tablet 10 mg PO DAILY RF: 0 Discharge Interventions Interventions: Vital Signs Last Done: 07/25/18 16:28 Status ED Status: With Doctor
[2018-07-25] MEDS: Sod Chloride 0.9% Inj 1,000 ML IV.CONT SCH (16:58)
--- NOTE | 2018-07-25 17:01 | XR ---
EXAM DATE: 07/25/2018 4:56 PM EDT AGE/SEX: 63 years / Female INDICATIONS: Stroke alert. CLINICAL DATA: This is the patient's initial encounter. Patient reports that signs and symptoms have been present for 1 day and indicates a pain score of 0/10. MEDICAL/SURGICAL HISTORY: None. None. COMPARISON: [facility], CHEST SINGLE AP, 10/17/2016. . FINDINGS: A single AP view of the chest demonstrates elevation of the right hemidiaphragm. There is no evidence of mass, focal consolidation, or effusion. The cardiomediastinal contours are unremarkable. Degener ative changes of the visualized spine. CONCLUSION: Elevation of the right hemidiaphragm. No acute cardiopulmonary process. Electronically signed by: Jes Madden MD 07/25/2018 4:59 PM EDT
[2018-07-25 17:03] LABS: Creatine Kinase 58 U/L (26-192)
--- NOTE | 2018-07-25 17:18 | P.HPIM ---
History of Present Illness Chief Complaint: Left-sided weakness History of Present Illness: 63-year-old white female with a history of previous CVA, hypertension presents to the emergency room with acute onset of left sided weakness and numbness while she will was walking outside with her significant other about 3:00 earlier today. These symptoms were preceded by repetitive shaking of her left upper arm which lasted about 4 minutes with no associated bladder or bowel incontinence. Her significant other states that she was alert and oriented during that time was able to talk her through the symptoms. They immediately called EMS who brought her to the emergency room. She states that she has not been diagnosed in the past with seizures. She does take a baby aspirin on a daily basis. She did take her medications earlier today which included antihypertensive and statin. When she came to the emergency room, her left- sided weakness improved and resolved. She states due to a stroke in October 2016 she continues to have left hand fine motor deficits. She is able to independently ambulate however at times does drag her left foot. She denies any associated headaches, visual changes or any difficulty with speech or swallowing at this time. Inpatient Certification: I certify that the inpatient services were ordered in accordance with Medicare regulations governing the order. This includes certification that hospital inpatient services are reasonable and necessary and in the case of services not specified as inpatient-only under 42 CFR 419.22(n), that they are appropriately provided as inpatient services in accordance to with the 2-midnight benchmark under 43 CFR 412.3(e) Estimated Total Length of Stay (Days): 2 Plans for Post Hospital Care: Home Review of Systems All other systems reviewed negative except as stated in HPI [facility] - History History Provided By: Patient - Medical History Medical History: Medical History (Last Reviewed 07/25/18 @ 16:48 by Guy Hernandez MD) HTN (hypertension) Seizure TIA (transient ischemic attack) - Surgical History Surgical History: Surgical History (Last Updated 07/25/18 @ 17:11 by Batsheva Sweeney MD) H/O hand surgery - Family History Family History: Family History (Last Updated 07/25/18 @ 17:13 by Batsheva Sweeney MD) Mother Diabetes Mother Lymphoma Mother Skin cancer Father Heart attack - Social History I have reviewed the patient's Social History: Yes - Tobacco History Second Hand Smoke Exposure: No Tobacco Use In Past 30 Days: No Smoking Status: Former smoker - Alcohol History How Often Do You Have a Drink Containing Alcohol: 4 or more times a week (4 beers daily) - Substance Use History Substance History: No History of Abuse - Travel History Recent Travel in the [place] Within the Last 8 Weeks: No - Immunization History Tetanus Immunization: <5 Years Hx Influenza Vaccine This Season: No Medications and Allergies Active Medications: Active Medications Aspirin (Ecotrin) 325 mg PO DAILY [facility] Sodium Chloride (Ns Inj) 1,000 mls @ 70 mls/hr IV.CONT .[id number] [facility] Last Admin: 07/25/18 16:58 Dose: 70 mls/hr Lacosamide (Vimpat) 100 mg PO BID [facility] Levetiracetam (Keppra) 500 mg PO BID [facility] Allergies Allergy/AdvReac Type Severity Reaction Status Date / Time morphine Allergy Intermediate ITCHING Verified 07/25/18 15:53 Home Medications Medication Instructions Recorded Confirmed Type bupropion HCl 150 mg PO DAILY 07/25/18 07/25/18 History losartan-hydrochlorothiazide 1 tab PO DAILY 07/25/18 07/25/18 History lovastatin 20 mg PO DAILY 07/25/18 07/25/18 History lovastatin 20 mg PO DAILY 07/25/18 07/25/18 History solifenacin [Vesicare] 10 mg PO DAILY 07/25/18 07/25/18 History Exam Vital signs: Vital Signs 07/25/18 15:49 07/25/18 16:12 07/25/18 16:28 Temperature 98.7 F Pulse Rate 116 H 104 H Respiratory Rate 19 17 Blood Pressure 138/90 138/90 Pulse Oximetry 97 97 96 Intake & Output 07/24/18 07/25/18 07/25/18 18:59 06:59 18:59 Weight 76.7 kg Narrative: GENERAL: Well-nourished well-developed white female in no acute distress SKIN: Warm and dry. HEAD: Atraumatic. Normocephalic. EYES: Pupils equal and round. No scleral icterus. No injection or drainage. ENT: No nasal bleeding or discharge. Mucous membranes pink and moist. NECK: Trachea midline. No JVD. CARDIOVASCULAR: Regular rate and rhythm. RESPIRATORY: No accessory muscle use. Clear to auscultation. Breath sounds equal bilaterally. GASTROINTESTINAL: Abdomen soft, non-tender, nondistended. Hepatic and splenic margins not palpable. Normoactive bowel sounds MUSCULOSKELETAL: Extremities without clubbing, cyanosis, or edema. No obvious deformities. NEUROLOGICAL: Awake and alert to person place time and situation. No obvious cranial nerve deficits. Motor grossly within normal limits. Five out of 5 muscle strength in the arms and legs. Sensation grossly intact, normal speech. PSYCHIATRIC: Appropriate mood and affect; insight and judgment normal. Results - Labs CBC & Chem 7: 07/25/18 15:15 Labs: Short CBC 07/25/18 Range/Units 15:15 WBC 8.6 (4.0-11.0) th/mm3 Hgb 13.6 (11.6-15.3) gm/dL Hct 41.1 (35.0-46.0) % Plt Count 369 (150-450) th/mm3 Cardiac Enzymes 07/25/18 Range/Units 15:15 Total Creatine Kinase 58 (26-192) U/L Troponin I Less than 0.02 L (0.02-0.05) ng/mL - Imaging Impressions Chest X-Ray 07/25/18 15:57 CONCLUSION: Elevation of the right hemidiaphragm. No acute cardiopulmonary process. Head CT 07/25/18 15:57 CONCLUSION: 1. Old right MCA territory infarction. 2. No acute intracranial abnormality. Report was called by [Dr. Delgado to Dr. Hernandez at 1606. ] Head CTA 07/25/18 15:57 CONCLUSION: 1. Negative CTA Head. Neck CTA 07/25/18 15:57 CONCLUSION: 1. Carotid and vertebral arteries are widely patent with no evidence for stenosis or occlusion. Caprini VTE Risk Assessment Caprini VTE Risk Assessment: Moderate/High Risk (score >= 2) Caprini Risk Assessment Model: Point Value = 1 Point Value = 2 Point Value = 3 Point Value = 5 Age 41-60 Minor surgery BMI > 25 kg/m2 Swollen legs Varicose veins or History of unexplained or recurrent spontaneous Oral contraceptives or hormone replacement Sepsis (< 1 month) Serious lung disease, including pneumonia (< 1 month) Abnormal pulmonary function Acute myocardial infarction Congestive heart failure (< 1 month) History of inflammatory bowel disease Medical patient at bed rest Age 61-74 Arthroscopic surgery Major open surgery (> 45 min) Laparoscopic surgery (> 45 min) Malignancy Confined to bed (> 72 hours) Immobilizing plaster cast Central venous access Age >= 75 History of VTE Family history of VTE Factor V Leiden Prothrombin [id number] Lupus anticoagulant Anticardiolipin antibodies Elevated serum homocysteine Heparin-induced thrombocytopenia Other congenital or acquired thrombophilia Stroke (< 1 month) Elective arthroplasty Hip, pelvis, or leg fracture Acute spinal cord injury (< 1 month) Prophylaxis Regimen: Total Risk Factor Score Risk Level Prophylaxis Regimen 0-1 Low Early ambulation 2 Moderate Order ONE of the following: *Sequential Compression Device (SCD) *Heparin 5000 units SQ BID 3-4 Higher Order ONE of the following medications: *Heparin 5000 units SQ TID *Enoxaparin/Lovenox 40 mg SQ daily (WT < 150 kg, CrCl > 30 mL/min) *Enoxaparin/Lovenox 30 mg SQ daily (WT < 150 kg, CrCl > 10-29 mL/min) *Enoxaparin/Lovenox 30 mg SQ BID (WT < 150 kg, CrCl > 30 mL/min) AND/OR *Sequential Compression Device (SCD) 5 or more Highest Order ONE of the following medications: *Heparin 5000 units SQ TID (Preferred with Epidurals) *Enoxaparin/Lovenox 40 mg SQ daily (WT < 150 kg, CrCl > 30 mL/min) *Enoxaparin/Lovenox 30 mg SQ daily (WT < 150 kg, CrCl > 10-29 mL/min) *Enoxaparin/Lovenox 30 mg SQ BID (WT < 150 kg, CrCl > 30 mL/min) AND *Sequential Compression Device (SCD) Assessment and Plan - Plan 63-year-old white female with a history of CVA presented with left-sided weakness and numbness resolved under a stroke alert 1. TIA versus seizure in a patient with a history of CVAadmit patient for further evaluation workup with neurology consultation. Will continue with aspirin, add Keppra and Vimpat to regimen per neurology, EEG, MRI of the brain , repeat 2D echo. PT evaluation. 2. Hypertension, chronic essentialresume home antihypertensives. 3. Hyperlipidemiacheck fasting lipid profile and restart statin 4. DVT prophylaxisLovenox
[2018-07-25] MEDS ORDERED: Dextrose 50% in Water 50 ML Vial IV.PUSH PRN (17:20)
--- NOTE | 2018-07-25 17:28 | MB ---
cc: Forrest Desir MD DATE: 07/25/2018 HISTORY OF PRESENT ILLNESS: The patient is a 62-year-old right-handed woman with a history of hypertension, hypercholesterolemia, large right MCA infarct cortically based with small hemorrhagic component in 10/2016. MRA of the carotids and qawalangin of [place] have been normal in the past and she was on a baby aspirin when I saw her on 11/23/2017. An echocardiogram had been normal with normal left atrial size and EF. She had a Holter with some nonsustained runs of atrial tachycardia. She had been doing well and then was admitted in 11/2017. About 4 a.m., went to the bathroom, felt something weird on the left side of her mouth and the left arm began the left arm began to jerk, less than 15 seconds. She was able to talk through that and felt fine. I thought it was probably a focal seizure. Her EEG was negative. MRI did not show any new strokes. I recommended she have a loop recorder and start Keppra 500 b.i.d. She tells me she has been on Keppra, but did not get the loop recorder placed. She has been on a baby aspirin a day. We had recommended 325. Today, she had an episode which started with evidently, a tremor on the left side, then weakness on the left side. When the investigator operator got there she was very weak on the left side and eyes deviated to the right and called a stroke alert. Came in, but by the time she got into the emergency room she was much improved. Her CT scan of the brain here was read as old stroke, nothing new, the old right MCA infarct. Review of the films in fact, she does have the moderately large right MCA old stroke, nothing new. She had a head CTA, negative, no blockages noted. CTA of the neck, official results are pending. On the preliminary films I do not see any blockages. ALLERGIES: MORPHINE. REVIEW OF SYSTEMS: She denies any history diabetes, [place], stent, angioplasty, AFib, Coumadin, CABG, renal, hepatic, pulmonary disease, thyroid disease, lupus, ulcer, cancer. SOCIAL HISTORY: She is not a smoker. Drinks about 6 beers a day. Lives with her partner. FAMILY HISTORY: Positive cancer. Negative for seizure or stroke. PHYSICAL EXAMINATION: VITAL SIGNS: 130/70, 105, sinus tachycardia. NECK: There were no carotid bruits. HEART: Regular rate and rhythm. I did not detect a murmur. NEUROLOGIC: Pupils are equal. Visual mann are full. Extraocular movements intact without nystagmus. Face is symmetric with normal sensation to pinprick. Tongue was midline. There is no drift. She has normal strength in upper and lower extremities bilaterally. DTRs trace throughout. Toes downgoing bilaterally. Pinprick was intact left arm and leg with double simultaneous stimuli in the left arm and leg. She neglected the left side, although there was no visual neglect. [id number]. Speech is fluent. She is not aphasic. Naming was intact. LABORATORY DATA: CBC is normal. Sedimentation rate in November was normal. Urine drug screen in November normal. UA in November was negative. Basic metabolic profile: Sodium is 132 today and it was 132 in November, otherwise normal. Her LDL cholesterol is 114 in November. Thiamine level was normal at that time. LFTs were normal then. Troponin was negative in November, pending today. Prothrombin gene in November was negative. Hypercoagulable screen was normal. Coags were normal at that time. RPR was negative. Antiphospholipid antibodies were normal then. CBC is normal today as was in November. MRI of the brain in November was negative, as well as an MRA of the neck, MRA of the head. EEG in 11/2017 was normal. MEDICATIONS ON ADMISSION: She is not quite sure what she is taking; however, she does say she thinks she is on the Levetiracetam and a baby aspirin. ASSESSMENT AND PLAN: I think probably another seizure on the Keppra. I am going to add on Vimpat 100 b.i.d. for 3 days and then 200 b.i.d. We will check an EEG. Recheck an MRI of the brain. Try to get further history from family. TPA was not used as the patient has had a full recovery here in the ER and NIH stroke scale of 1. I would like her to get a loop recorder placed by cardiology. MD MADDI Shoemaker/danielle , 04:37 PM , 04:48 PM
[2018-07-25] MEDS ORDERED: Enoxaparin Inj 40 MG/0.4 ML Syringe SQ SCH (18:00)
[2018-07-25 18:02] LABS: Bilirubin,Urine Negative (Negative); Clarity,Urine Clear (Clear); Color,Urine Yellow (Yellw/Straw); Glucose,Urine (UA) Negative (Negative); Hyaline Casts,Urine 1 /lpf (0-3); Leukocyte Esterase,Urine Negative (Negative); Nitrite,Urine Negative (Negative); Specific Gravity,Urine 1.034 (1.002-1.035)
[2018-07-25 18:04] LABS: Amphetamine Screen,Urine Neg (Neg); Barbiturate Screen,Urine Neg (Neg); Cannabinoid Screen,Urine Neg (Neg); Cocaine Screen,Urine Neg (Neg)
[2018-07-25 18:09] LABS: Opiate Screen,Urine Neg (Neg)
[2018-07-25] MEDS ORDERED: Lacosamide Inj 50 MG in Sodium Chlor 0.9% Inj 100 ML IV.SIG ONE (18:27)
[2018-07-25] MEDS ORDERED: Lacosamide 100 MG Tablet PO SCH (20:00)
[2018-07-25] MEDS ORDERED: Gadobutrol PF 7.5 MMOL/7.5 ML Vial (for RAD) IV.SIG ONE (20:13)
--- NOTE | 2018-07-25 20:23 | MR ---
EXAM DATE: 07/25/2018 8:15 PM EDT AGE/SEX: 63 years / Female INDICATIONS: CVA. Left sided weakness. No old right frontal parietal infarct. CLINICAL DATA: This is the patient's subsequent encounter. Patient reports that signs and symptoms h ave been present for 1 day and indicates a pain score of 0/10. MEDICAL/SURGICAL HISTORY: Hypertension. Seizures. Cerebrovascular disease. . Hand surgery. COMPARISON: [facility], MRI BRAIN W & W/O CONTRAST, 11/23/2017. . TECHNIQUE: Multiplanar, multisequence examination of the brain was performed without and with 7.5 ml Gadavist (gadobutrol) contrast as a single exam dose. FINDINGS: Study is degraded by motion artifact. Cerebrum: Mild diffuse atrophic changes are again noted with sulcal and ventricular prominence. Ther e is a stable focal area of encephalomalacia again noted involving the right posterior frontal and pa rietal lobes with surrounding gliosis. No evidence of midline shift, mass lesion, hemorrhage or acute infarction. No extraaxial fluid collections are seen. The pituitary gland and suprasellar cistern are normal in configuration. White Matter: There is increased signal in the periventricular white matter as well as scattered pun ctate areas of increased signal characteristic of chronic small vessel ischemic change. This is stabl e in appearance. Posterior Fossa: The cerebellum and brainstem are intact. The 4th ventricle is midline. The cerebel lopontine angle is unremarkable. The cerebellar tonsils are normal in position. Diffusion Imaging: No focal areas of restricted diffusion are seen. No evidence of acute infarction . Extracranial: The visualized portions of the orbits and paranasal sinuses are unremarkable. Post Contrast: No abnormal areas of parenchymal or dural enhancement. No evidence of blood-brain ba rrier breakdown. CONCLUSION: 1. No acute hemorrhage or infarction. 2. Stable old right frontal parietal infarction with surrounding gliosis. 3. Atrophy and chronic small vessel ischemic changes. 4. The study is degraded by motion artifact. Electronically signed by: Tao Arreola MD 07/25/2018 8:22 PM EDT
[2018-07-25] MEDS ORDERED: levETIRAcetam 500 MG Tablet PO SCH (21:00)
[2018-07-26] MEDS: Sod Chloride 0.9% Inj 1,000 ML IV.CONT SCH (06:10)
[2018-07-26 07:10] LABS: Chol/HDL Ratio 2.21 Ratio; HDL Cholesterol 72.7 mg/dL (40.0-60.0)
--- NOTE | 2018-07-26 07:52 | P.PNNEU ---
Subjective Subjective Comments: no more sz overnoc had another one in er got 2 mg ativan Active Medications: Active Medications Aspirin (Ecotrin) 325 mg PO Q24H [facility] Last Admin: 07/25/18 18:24 Dose: 325 mg Bupropion HCl (Wellbutrin Sr) 150 mg PO DAILY [facility] Dextrose (D50w Vial) 50 ml IV.PUSH UNSCH PRN PRN Reason: per Hypoglycemic Protocol Enalaprilat (Vasotec Inj) 1.25 mg IV.PUSH Q4H PRN PRN Reason: SBP> OR = 180, DBP> OR = 100 Enoxaparin Sodium (Lovenox Inj) 40 mg SQ Q24H [facility] Last Admin: 07/25/18 18:39 Dose: 40 mg Glucagon (Glucagon Inj) 1 mg OTHER UNSCH PRN PRN Reason: per Hypoglycemic Protocol Hydrochlorothiazide (Hydrodiuril) 25 mg PO DAILY [facility] Sodium Chloride (Ns Inj) 1,000 mls @ 70 mls/hr IV.CONT .[id number] [facility] Last Admin: 07/26/18 06:10 Dose: 70 mls/hr Lacosamide (Vimpat) 100 mg PO Q12H [facility] Last Admin: 07/25/18 21:44 Dose: 100 mg Levetiracetam (Keppra) 500 mg PO BID [facility] Last Admin: 07/25/18 21:44 Dose: 500 mg Losartan Potassium (Cozaar) 100 mg PO DAILY [facility] Pravastatin Sodium (Pravachol) 40 mg PO HS [facility] Last Admin: 07/25/18 21:44 Dose: 40 mg Tolterodine Tartrate (Detrol La) 4 mg PO DAILY [facility] Allergies/Adverse Reactions: Allergies Allergy/AdvReac Type Severity Reaction Status Date / Time morphine Allergy Intermediate ITCHING Verified 07/25/18 15:53 Physical Exam Vital signs: Vital Signs 07/25/18 15:49 07/25/18 16:12 07/25/18 16:28 Temperature 98.7 F Pulse Rate 116 H 104 H Respiratory Rate 19 17 Blood Pressure 138/90 138/90 Pulse Oximetry 97 97 96 07/25/18 18:01 07/25/18 19:20 07/26/18 00:00 Temperature 98.2 F 97.5 F L Pulse Rate 106 H 90 100 H Respiratory Rate 19 18 16 Blood Pressure 178/81 H 137/77 93/54 L Pulse Oximetry 95 96 94 L 07/26/18 04:00 Temperature 97.8 F Pulse Rate 79 Respiratory Rate 18 Blood Pressure 103/60 Pulse Oximetry 96 Intake & Output 07/25/18 07/26/18 07/26/18 18:59 06:59 18:59 Intake Total 1105 / 1105 Balance 1105 / 1105 Weight 76.7 kg 78.5 kg Intake: IV 1105 / 1105 NS Inj 1,000 ML @ 70 mls/hr IV. 1000 / 1000 CONT .[id number] [facility] Rx#:[id number] Vimpat Inj 50 MG In NS Inj 100 105 / 105 ML @ 105 mls/hr IV.SIG ONCE ONE Rx#:[id number] Other: # Voids 6 Narrative: awake alert vff moving left well Objective Laboratory Results - last 24 hr 07/25/18 07/25/18 07/25/18 15:15 15:15 15:57 WBC 8.6 RBC 4.60 Hgb 13.6 POC Hgb (Calc) 14.3 Hct 41.1 POC Hct 42.0 MCV 89.4 MCH 29.6 MCHC 33.1 RDW 13.8 Plt Count 369 MPV 6.8 L Neut % (Auto) 44.6 Lymph % (Auto) 41.4 [place] % (Auto) 10.3 H Eos % (Auto) 2.8 Baso % (Auto) 0.9 Neut # (Auto) 3.8 Lymph # (Auto) 3.5 [place] # (Auto) 0.9 Eos # (Auto) 0.2 Baso # (Auto) 0.1 WBC Differential . Differential Comment Auto diff final PT 10.5 INR 1.0 APTT 19.8 L Fibrinogen 265 POC Sodium 132 L POC Potassium 3.2 L POC Chloride 91 L POC BUN 13 POC Creatinine 0.9 POC Glucose 138 H Total Creatine Kinase 58 Troponin I Less than 0.02 L Triglycerides Cholesterol LDL Cholesterol, Calc HDL Cholesterol Cholesterol/HDL Ratio Beta HCG, Quant 4 Urine Color Urine Clarity Urine pH Ur Specific [place] Urine Protein Urine Glucose (UA) Urine Ketones Urine Occult Blood Urine Nitrate Urine Bilirubin Urine Urobilinogen Ur Leukocyte Esterase Urine RBC Urine WBC Hyaline Casts Micro UA Comment Ur Microscopic Review Urine Culture Comments Urine Opiates Screen Ur Barbiturates Screen Ur Amphetamines Screen U Benzodiazepines Scrn Urine Cocaine Screen U Cannabinoids Screen Blood Type Antibody Screen 07/25/18 07/25/18 07/25/18 17:27 17:27 17:40 WBC RBC Hgb POC Hgb (Calc) Hct POC Hct MCV MCH MCHC RDW Plt Count MPV Neut % (Auto) Lymph % (Auto) [place] % (Auto) Eos % (Auto) Baso % (Auto) Neut # (Auto) Lymph # (Auto) [place] # (Auto) Eos # (Auto) Baso # (Auto) WBC Differential Differential Comment PT INR APTT Fibrinogen POC Sodium POC Potassium POC Chloride POC BUN POC Creatinine POC Glucose Total Creatine Kinase Troponin I Triglycerides Cholesterol LDL Cholesterol, Calc HDL Cholesterol Cholesterol/HDL Ratio Beta HCG, Quant Urine Color Yellow Urine Clarity Clear Urine pH 5.0 Ur Specific [place] 1.034 Urine Protein Negative Urine Glucose (UA) Negative Urine Ketones Negative Urine Occult Blood Small H Urine Nitrate Negative Urine Bilirubin Negative Urine Urobilinogen Less than 2 Ur Leukocyte Esterase Negative Urine RBC 3 Urine WBC 1 Hyaline Casts 1 Micro UA Comment Culture not ind Ur Microscopic Review Not Reportable Urine Culture Comments Culture not ind Urine Opiates Screen Neg Ur Barbiturates Screen Neg Ur Amphetamines Screen Neg U Benzodiazepines Scrn Neg Urine Cocaine Screen Neg U Cannabinoids Screen Neg Blood Type A Positive Antibody Screen Negative 07/25/18 07/26/18 22:24 05:25 WBC RBC Hgb POC Hgb (Calc) Hct POC Hct MCV MCH MCHC RDW Plt Count MPV Neut % (Auto) Lymph % (Auto) [place] % (Auto) Eos % (Auto) Baso % (Auto) Neut # (Auto) Lymph # (Auto) [place] # (Auto) Eos # (Auto) Baso # (Auto) WBC Differential Differential Comment PT INR APTT Fibrinogen POC Sodium POC Potassium POC Chloride POC BUN POC Creatinine POC Glucose 123 H Total Creatine Kinase Troponin I Triglycerides 74 Cholesterol 161 LDL Cholesterol, Calc 74 HDL Cholesterol 72.7 H Cholesterol/HDL Ratio 2.21 Beta HCG, Quant Urine Color Urine Clarity Urine pH Ur Specific [place] Urine Protein Urine Glucose (UA) Urine Ketones Urine Occult Blood Urine Nitrate Urine Bilirubin Urine Urobilinogen Ur Leukocyte Esterase Urine RBC Urine WBC Hyaline Casts Micro UA Comment Ur Microscopic Review Urine Culture Comments Urine Opiates Screen Ur Barbiturates Screen Ur Amphetamines Screen U Benzodiazepines Scrn Urine Cocaine Screen U Cannabinoids Screen Blood Type Antibody Screen Review/Management - Review/Management Plan: imp mri neg eeg pendlabs neg on keppra nd vimpat she had likley 2 sz and was on wellbutrin so that dced and no ultram i dw partner will restart keppra as was not taking at home after loop placed could dc on 1000 bid keppra and fu office and asa 325
[2018-07-26] MEDS ORDERED: Tolterodine Tartrate LA 4 MG Capsule PO SCH (09:00)
[2018-07-26] MEDS ORDERED: buPROPion 150 MG 12 HR Tablet PO SCH (09:00)
[2018-07-26] MEDS ORDERED: hydroCHLOROthiazide 25 MG Tablet PO SCH (09:00)
[2018-07-26] MEDS ORDERED: Non-Formulary Drug (Losartan-Hydrochlorothiazide [Losartan-Hydrochlorothiazide] 1 TAB) PO SCH (09:00)
[2018-07-26] MEDS ORDERED: levETIRAcetam 500 MG Tablet PO SCH (09:00)
[2018-07-26 09:07] VITALS: RESP 17
[2018-07-26] MEDS ORDERED: fentaNYL Citrate Inj 100 MCG/2 ML Ampul ONE (10:40)
[2018-07-26] MEDS ORDERED: Mupirocin 2% Nasal Oint Topical Syringe EACH NARE SCH (10:45)
[2018-07-26] MEDS ORDERED: Chlorhexidine Gluconate 2% 1 Pack (2 Cloths) TOPICAL SCH (10:45)
[2018-07-26] MEDS ORDERED: ceFAZolin 2 GM/NS 100 ML IV; Q8H IV.SIG SCH ×2 (11:00)
[2018-07-26 12:57] VITALS: BP 144/75; PULSE 71; TEMP 98.1; O2SAT 99
[2018-07-26] MEDS ORDERED: fentaNYL Citrate Inj 100 MCG/2 ML Ampul IV.PUSH ONE ×2 (13:00)
--- NOTE | 2018-07-26 14:24 | ECHRPT ---
Indication: CVA/TIA CONCLUSIONS The left ventricular systolic function is normal with an estimated ejection fraction in the range of 60-65%. Wall thickness is measured at the upper limits of normal. Normal left ventricular size. The left atrial size is mildly dilated. Trace mitral valve regurgitation. There is mild tricuspid valve regurgitation. The estimated pulmonary arterial pressure is 31.5 mmHg. BP: / HR: 70 Rhythm: Sinus MEASUREMENTS (Male / Female) Normal Values Technical Quality:Fair 2D ECHO LV Diastolic Diameter PLAX 4.4 cm 4.2 - 5.9 / 3.9 - 5.3 cm LV Systolic Diameter PLAX 3.0 cm IVS Diastolic Thickness 1.0 cm 0.6 - 1.0 / 0.6 - 0.9 cm LVPW Diastolic Thickness 0.9 cm 0.6 - 1.0 / 0.6 - 0.9 cm LV Relative Wall Thickness 0.4 RV Internal Dim ED PLAX 2.9 cm LVOT Diameter 1.8 cm Aortic Root Diameter 2.6 cm LA Systolic Diameter LX 3.7 cm 3.0 - 4.0 / 2.7 - 3.8 cm LV Ejection Fraction MOD 4C 66.9 % LV Cardiac Index MOD 4C 3274.6 cm/minm LV Ejection Fraction 4C AL 66.7 % LV Cardiac Index 4C AL 3292.8 cm/minm M-MODE Aortic Root Diameter MM 3.1 cm LA Systolic Diameter MM 4.4 cm LA Ao Ratio MM 1.4 AV Cusp Separation MM 1.9 cm DOPPLER AV Peak Velocity 130.0 cm/s AV Peak Gradient 6.8 mmHg LVOT Peak Velocity 106.0 cm/s LVOT Peak Gradient 4.5 mmHg AV Area Cont Eq pk 2.1 cm Mitral E Point Velocity 67.1 cm/s Mitral A Point Velocity 74.5 cm/s Mitral E to A Ratio 0.9 LV E' Lateral Velocity 7.0 cm/s Mitral E to LV E' Lateral Ratio 9.6 LV E' Septal Velocity 5.7 cm/s Mitral E to LV E' Septal Ratio 11.9 TR Peak Velocity 232.0 cm/s TR Peak Gradient 21.5 mmHg Right Atrial Pressure 10.0 mmHg Pulmonary Artery Systolic Pressu 31.5 mmHg Right Ventricular Systolic Press 31.5 mmHg PV Peak Velocity 107.0 cm/s PV Peak Gradient 4.6 mmHg FINDINGS LEFT VENTRICLE The left ventricular systolic function is normal with an estimated ejection fraction in the range of 60-65%. Wall thickness is measured at the upper limits of normal. Normal left ventricular size. No regional wall motion abnormalities are present. RIGHT VENTRICLE Normal right ventricular size and systolic function. LEFT ATRIUM The left atrial size is mildly dilated. RIGHT ATRIUM The right atrial size is normal. ATRIAL SEPTUM Normal atrial septal thickness without atrial level shunting by limited color doppler interrogation. AORTA The aortic root and proximal ascending aorta are normal in size on limited imaging. MITRAL VALVE Structurally normal mitral valve. No mitral valve stenosis. Trace mitral valve regurgitation. AORTIC VALVE Trileaflet aortic valve. No aortic valve stenosis or regurgitation. TRICUSPID VALVE There is mild tricuspid valve regurgitation. The estimated pulmonary arterial pressure is 31.5 mmHg. PULMONARY VALVE No pulmonary valve regurgitation or stenosis. VESSELS The inferior vena cava is normal in size. PERICARDIUM No pericardial effusion. Keo Babb (Electronically Signed) Final Date:26 July 2018 14:22
--- NOTE | 2018-07-26 15:08 | P.PNIM ---
Subjective Interval history: Patient seen after loop recorder placement. She reports she is feeling great and eager to go home. No further seizure activities. Physical Exam Vital signs: Vital Signs 07/25/18 15:49 07/25/18 16:12 07/25/18 16:28 Temperature 98.7 F Pulse Rate 116 H 104 H Respiratory Rate 19 17 Blood Pressure 138/90 138/90 Pulse Oximetry 97 97 96 07/25/18 18:01 07/25/18 19:20 07/26/18 00:00 Temperature 98.2 F 97.5 F L Pulse Rate 106 H 90 100 H Respiratory Rate 19 18 16 Blood Pressure 178/81 H 137/77 93/54 L Pulse Oximetry 95 96 94 L 07/26/18 04:00 07/26/18 08:00 07/26/18 11:21 Temperature 97.8 F 97.9 F Pulse Rate 79 69 67 Respiratory Rate 18 17 Blood Pressure 103/60 134/75 Pulse Oximetry 96 98 07/26/18 12:00 Temperature 98.1 F Pulse Rate 71 Respiratory Rate 17 Blood Pressure 144/75 H Pulse Oximetry 99 Intake & Output 07/25/18 07/26/18 07/26/18 18:59 06:59 18:59 Intake Total 1105 / 1105 600 / 600 Balance 1105 / 1105 600 / 600 Weight 76.7 kg 78.5 kg Intake: IV 1105 / 1105 600 / 600 NS Inj 1,000 ML @ 70 mls/hr IV. 1000 / 1000 500 / 500 CONT .[id number] [facility] Rx#:[id number] Vimpat Inj 50 MG In NS Inj 100 105 / 105 ML @ 105 mls/hr IV.SIG ONCE ONE Rx#:[id number] Ancef Inj 2,000 MG In NS Inj 80 100 / 100 ML @ 200 mls/hr IV.SIG [employer] DIRECTOR [facility] Rx#:[id number] Other: # Voids 6 Narrative: GENERAL: This is a well-nourished, well-developed patient, in no apparent distress. CARDIOVASCULAR: Normal rate and regular rhythm without murmurs, gallops, or rubs. RESPIRATORY: Good respiratory efforts. Breath sounds equal and clear to auscultation bilaterally. GASTROINTESTINAL: Abdomen soft, non-tender, non-distended. Normal active bowel sounds MUSCULOSKELETAL: Extremities without cyanosis, or edema. NEURO: Alert & Oriented x4 to person, place, time, situation. Moves all ext x4 PSYCH: Appropriate mood and affect. Results - Labs CBC & Chem 7: 07/25/18 15:15 Laboratory Results - last 24 hr 07/25/18 07/25/18 07/25/18 15:15 15:15 15:57 WBC 8.6 RBC 4.60 Hgb 13.6 POC Hgb (Calc) 14.3 Hct 41.1 POC Hct 42.0 MCV 89.4 MCH 29.6 MCHC 33.1 RDW 13.8 Plt Count 369 MPV 6.8 L Neut % (Auto) 44.6 Lymph % (Auto) 41.4 George % (Auto) 10.3 H Eos % (Auto) 2.8 Baso % (Auto) 0.9 Neut # (Auto) 3.8 Lymph # (Auto) 3.5 George # (Auto) 0.9 Eos # (Auto) 0.2 Baso # (Auto) 0.1 WBC Differential . Differential Comment Auto diff final PT 10.5 INR 1.0 APTT 19.8 L Fibrinogen 265 POC Sodium 132 L POC Potassium 3.2 L POC Chloride 91 L POC BUN 13 POC Creatinine 0.9 POC Glucose 138 H Total Creatine Kinase 58 Troponin I Less than 0.02 L Triglycerides Cholesterol LDL Cholesterol, Calc HDL Cholesterol Cholesterol/HDL Ratio Beta HCG, Quant 4 Urine Color Urine Clarity Urine pH Ur Specific [place] Urine Protein Urine Glucose (UA) Urine Ketones Urine Occult Blood Urine Nitrate Urine Bilirubin Urine Urobilinogen Ur Leukocyte Esterase Urine RBC Urine WBC Hyaline Casts Micro UA Comment Ur Microscopic Review Urine Culture Comments Urine Opiates Screen Ur Barbiturates Screen Ur Amphetamines Screen U Benzodiazepines Scrn Urine Cocaine Screen U Cannabinoids Screen Blood Type Antibody Screen 07/25/18 07/25/18 07/25/18 17:27 17:27 17:40 WBC RBC Hgb POC Hgb (Calc) Hct POC Hct MCV MCH MCHC RDW Plt Count MPV Neut % (Auto) Lymph % (Auto) George % (Auto) Eos % (Auto) Baso % (Auto) Neut # (Auto) Lymph # (Auto) George # (Auto) Eos # (Auto) Baso # (Auto) WBC Differential Differential Comment PT INR APTT Fibrinogen POC Sodium POC Potassium POC Chloride POC BUN POC Creatinine POC Glucose Total Creatine Kinase Troponin I Triglycerides Cholesterol LDL Cholesterol, Calc HDL Cholesterol Cholesterol/HDL Ratio Beta HCG, Quant Urine Color Yellow Urine Clarity Clear Urine pH 5.0 Ur Specific [place] 1.034 Urine Protein Negative Urine Glucose (UA) Negative Urine Ketones Negative Urine Occult Blood Small H Urine Nitrate Negative Urine Bilirubin Negative Urine Urobilinogen Less than 2 Ur Leukocyte Esterase Negative Urine RBC 3 Urine WBC 1 Hyaline Casts 1 Micro UA Comment Culture not ind Ur Microscopic Review Not Reportable Urine Culture Comments Culture not ind Urine Opiates Screen Neg Ur Barbiturates Screen Neg Ur Amphetamines Screen Neg U Benzodiazepines Scrn Neg Urine Cocaine Screen Neg U Cannabinoids Screen Neg Blood Type A Positive Antibody Screen Negative 07/25/18 07/26/18 07/26/18 22:24 05:25 09:56 WBC RBC Hgb POC Hgb (Calc) Hct POC Hct MCV MCH MCHC RDW Plt Count MPV Neut % (Auto) Lymph % (Auto) George % (Auto) Eos % (Auto) Baso % (Auto) Neut # (Auto) Lymph # (Auto) George # (Auto) Eos # (Auto) Baso # (Auto) WBC Differential Differential Comment PT INR APTT Fibrinogen POC Sodium POC Potassium POC Chloride POC BUN POC Creatinine POC Glucose 123 H 89 Total Creatine Kinase Troponin I Triglycerides 74 Cholesterol 161 LDL Cholesterol, Calc 74 HDL Cholesterol 72.7 H Cholesterol/HDL Ratio 2.21 Beta HCG, Quant Urine Color Urine Clarity Urine pH Ur Specific [place] Urine Protein Urine Glucose (UA) Urine Ketones Urine Occult Blood Urine Nitrate Urine Bilirubin Urine Urobilinogen Ur Leukocyte Esterase Urine RBC Urine WBC Hyaline Casts Micro UA Comment Ur Microscopic Review Urine Culture Comments Urine Opiates Screen Ur Barbiturates Screen Ur Amphetamines Screen U Benzodiazepines Scrn Urine Cocaine Screen U Cannabinoids Screen Blood Type Antibody Screen 07/26/18 14:23 WBC RBC Hgb POC Hgb (Calc) Hct POC Hct MCV MCH MCHC RDW Plt Count MPV Neut % (Auto) Lymph % (Auto) George % (Auto) Eos % (Auto) Baso % (Auto) Neut # (Auto) Lymph # (Auto) George # (Auto) Eos # (Auto) Baso # (Auto) WBC Differential Differential Comment PT INR APTT Fibrinogen POC Sodium POC Potassium POC Chloride POC BUN POC Creatinine POC Glucose 102 Total Creatine Kinase Troponin I Triglycerides Cholesterol LDL Cholesterol, Calc HDL Cholesterol Cholesterol/HDL Ratio Beta HCG, Quant Urine Color Urine Clarity Urine pH Ur Specific [place] Urine Protein Urine Glucose (UA) Urine Ketones Urine Occult Blood Urine Nitrate Urine Bilirubin Urine Urobilinogen Ur Leukocyte Esterase Urine RBC Urine WBC Hyaline Casts Micro UA Comment Ur Microscopic Review Urine Culture Comments Urine Opiates Screen Ur Barbiturates Screen Ur Amphetamines Screen U Benzodiazepines Scrn Urine Cocaine Screen U Cannabinoids Screen Blood Type Antibody Screen - Imaging Impressions Chest X-Ray 07/25/18 15:57 CONCLUSION: Elevation of the right hemidiaphragm. No acute cardiopulmonary process. Head CT 07/25/18 15:57 CONCLUSION: 1. Old right MCA territory infarction. 2. No acute intracranial abnormality. Report was called by [Dr. Delgado to Dr. Hernandez at 1606. ] Head CTA 07/25/18 15:57 CONCLUSION: 1. Negative CTA Head. Neck CTA 07/25/18 15:57 CONCLUSION: 1. Carotid and vertebral arteries are widely patent with no evidence for stenosis or occlusion. Head MRI 07/25/18 16:35 CONCLUSION: 1. No acute hemorrhage or infarction. 2. Stable old right frontal parietal infarction with surrounding gliosis. 3. Atrophy and chronic small vessel ischemic changes. 4. The study is degraded by motion artifact. Assessment and Plan - Plan 63-year-old white female with a history of CVA presented with left-sided weakness and numbness that resolved under a stroke alert. Patient was followed by neurology. Workup for CVA unremarkable. Impression is probable seizure. Patient was supposed to be on Keppra at home but has not been taking that. She was restarted on Keppra and aspirin. A loop recorder was placed. The patient is to follow-up with neurology and cardiology outpatient. Hypertension, chronic essentialcontinue home antihypertensives. Hyperlipidemiacontinue statin Discharge Planning: Discharge patient to home Condition on discharge: Improved Regular Diet as tolerated Ad Bella activity: Patient advised to not drive, no swimming, no climbing heights or operate heavy machinery. Rx written: Per med rec. Follow-up with primary care physician
[2018-07-26 16:11] LABS: Hemoglobin A1c 5.3 % (4.3-6.0)
--- NOTE | 2018-07-26 19:03 | ECG ---
Date Performed: 07/25/2018 Time Performed: 16:25:50 PTAGE: 63 years EKG: SINUS TACHYCARDIA BORDERLINE LEFT AXIS DEVIATION ABNORMAL RHYTHM ECG PREVIOUS TRACING : 10/17/2016 22.06 Since the previous tracing, no significant change noted DOCTOR: Deyvi Ingram Interpretating Date/Time 07/26/2018 19:01:38
--- NOTE | 2018-07-26 19:57 | MG ---
cc: Sabiha García MD ELECTROENCEPHALOGRAM NUMBER: [id number]. REFERRING PHYSICIAN: Forrest Desir MD CLINICAL HISTORY: Room 1515. Awake, drowsy, asleep with photic only. Loop recorder placement today for possible cardiac dysrhythmia. On anticoagulant therapy, history of stroke, questionable seizures. DESCRIPTION OF RECORD: The EEG background alpha rhythm is of 8 to 8.5 Hz, 20 microvolts. Seems to be asleep. Some attenuation is noted. Overall symmetrical background. Photic stimulation did elicit a posterior driving response. IMPRESSION: Normal-appearing electroencephalogram. I do not appreciate any epileptiform features. Clinical correlation. MD CHARO Lopez/leonard , 07:07 PM , 07:13 PM
--- NOTE | 2018-07-26 23:27 | MR ---
cc: Wes Mary DO DATE: 07/26/2018 PROCEDURE: Implantation of a [employer] loop recorder (model [id number], serial #[id number]). PREOPERATIVE DIAGNOSIS: History of cerebrovascular accident, possible recent transient ischemic attack, rule out atrial fibrillation. POSTPROCEDURE DIAGNOSIS: Status post [employer] loop recorder implantation. MEDICATIONS: 1. Ancef 2 grams. 2. Versed 1 mg. 3. Fentanyl 100 mcg. ESTIMATED BLOOD LOSS: Minimal. PROCEDURAL SUMMARY: Juan Manuel Pendleton is a pleasant 63-year-old female who presented to [facility] with a neurological event. She was seen by neurology and it was felt that it was possible seizure versus TIA. She has a history of a significant CVA in the recent past and was recommended loop recorder at that time to rule out atrial fibrillation due to her previous CVA as well as a possible TIA on this admission. She was recommended loop recorder placement. Risks, benefits and alternatives were discussed with her, and she consented as such. She was brought to the holding area and prepped in the usual sterile fashion. She was given 2 grams of Ancef IV. The left anterior chest wall was anesthetized with lidocaine. A small incision was made over the fourth intercostal and the loop recorder device was injected under the skin. Pressure was held for hemostasis. The patient tolerated the procedure well. HARDWARE: [employer] loop recorder (model number [id number], serial #[id number]). R-wave 0.43 millivolts. SETTINGS: Bradycardia 40, tachycardia 160, pause 3 seconds. IMPRESSION: 1. History of cerebrovascular accident. 2. New neurologic event, possible transient ischemic attack versus seizure. 3. Status post implantation of a [employer] loop recorder. RECOMMENDATIONS: 1. Ms. Pendleton underwent loop recorder placement as above. 2. From my standpoint, she can be discharged later today. 3. She will follow up with me in the office. Thank you for allowing me to see Juan Manuel Pendleton. If there are any questions, please do not hesitate to call. Wes Mary DO VGP/ct , 10:45 PM , 10:53 PM
--- NOTE | 2018-07-26 23:45 | MB ---
cc: Wes Mary DO DATE: 07/26/2018 REASON FOR CONSULTATION: Possible TIA with a history of CVA. HISTORY OF PRESENT ILLNESS: Juan Manuel Pendleton is a pleasant 63-year-old female who presented to [facility] after a neurological event. She was walking with her significant other than when she started noticing left-sided weakness and numbness. She had repetitive shaking of her left upper arm that lasted for about 4 minutes and had no associated bowel or bladder incontinence during this period. She was able to talk to her significant other during and had no postictal phase. She was brought to the emergency room and evaluated by Neurology for possible seizure versus transient ischemic attack. It was felt that she may have had a seizure and not a TIA, but had a previous stroke in October 2016. Dr. Desir at her previous admission felt that she should undergo a loop recorder placement outpatient due to a large infarct. He once again saw the patient today and felt that as there was a concern for possible TIA that she should undergo a loop recorder. In seeing her, she is currently hemodynamically stable with no complaints. PAST MEDICAL HISTORY: 1. Cerebrovascular accident. 2. Seizure. 3. Hypertension. PAST SURGICAL HISTORY: Hand surgery. ALLERGIES: MORPHINE. MEDICATIONS: 1. Lovastatin 20 mg daily. 2. Losartan/hydrochlorothiazide 100/25. 3. Wellbutrin 150 mg daily. 4. VESIcare 10 mg daily. FAMILY HISTORY: Denies premature coronary artery disease or sudden cardiac within the family. SOCIAL HISTORY: The patient has a history of tobacco abuse. She drinks about 4 beers daily. Denies drug abuse. REVIEW OF SYSTEMS: Fourteen systems were reviewed including osteopathic. Pertinent positives and negatives above, otherwise negative. PHYSICAL EXAMINATION: VITAL SIGNS: Temperature 97.9, heart rate 69, blood pressure 134/75, respirations 17, pulse oximetry 98% on room air. GENERAL: The patient appears well, in no acute distress. Alert, awake and oriented x3. HEENT: Extraocular muscles intact. Mucous membranes moist. NECK: Supple. No JVD at 45 degrees. No carotid bruits heard bilaterally. Carotid upstroke is brisk in nature. HEART: Regular rate and rhythm. Positive first and second sounds with no noted murmurs, gallops or rubs. LUNGS: Clear to auscultation bilaterally. No wheezes, rales or rhonchi. ABDOMEN: Soft, nontender, nondistended. No organomegaly noted. EXTREMITIES: Show no clubbing, cyanosis or edema. Femoral and distal pulses are intact bilaterally. NEUROLOGIC: Does have left arm weakness compared to the right arm. SKIN: Warm, dry and intact. OSTEOPATHIC: No kyphoscoliosis or lordosis. LABORATORY DATA: Hemoglobin 13.6, hematocrit 41.1, platelets 369. Potassium 3.2, BUN 13, creatinine 0.9. Electrocardiogram (07/25/2018 at 1625): Sinus tachycardia, borderline left axis deviation. IMPRESSION: 1. Transient ischemic attack versus seizure. 2. History of cerebrovascular accident. 3. Hypertension. 4. Hyperlipidemia. RECOMMENDATIONS: 1. Ms. Pendleton presented with a neurological event and was evaluated by Neurology for possible TIA versus seizure. Overall, Neurology felt like this is more likely due to a seizure. 2. Neurology recommended with her previous CVA as well as on this admission, a loop recorder placement to rule out atrial fibrillation as a possible cause for her previous CVA as well as possible TIA on this admission. 3. Risks, benefits, and alternatives were discussed with the patient and she consents for the procedure. 4. She will be left n.p.o. this morning and a loop recorder will be placed later today. 5. She will follow up with me in the office upon discharge. Thank you for allowing me to see Juan Manuel Pendleton. If there are any questions, please do not hesitate to call. Wes Mary, DO VGP/ns , 10:40 PM , 10:52 PM
== END 2018-07-26 17:27 | disposition home or self-care (01) ==
LOC: NEPE 15:49 → NEDA 17:00 → N05 19:00
PROVIDERS: ADMIT Family Medicine; ATTEND Family Medicine